=== PATIENT | female | born 1955 | race Caucasian/White ===

== ENCOUNTER 2020-10-25 14:49 | Outpatient (REF) | payer MEDICARE, MEDICAID, SELFPAY | END 2020-10-25 14:50 | disposition home or self-care (01) | LOC: HO.LAB 14:49 | PROVIDERS: Visit Provider Internal Medicine | DX: Z20.822 Contact with and (suspected) exposure to COVID-19 (principal) | CPT/HCPCS: C9803; U0003; U0005 ==

== ENCOUNTER 2021-06-20 14:09 | Outpatient (REF) | payer MEDICARE, MEDICAID, SELFPAY ==
--- NOTE | 2021-06-27 13:27 | MHC.AU.AEV ---
Adult Audiological Evaluation Date of Visit: 06/20/21 Patent Engineer Used: Monegasque- In Person Reason for Appointment: History of childhood-onset hearing loss. Patient arrives today to determine if there has been a change in hearing. Has hearing been tested previously?: Yes Previous Hearing Test Results: At this clinic on 08/10/2015- Severe to profound sensorineural hearing loss bilaterally (worse in the left ear) Ear History: Recent Ear Drainage: None Reported Recent Ear Pain: None Reported Family History of Hearing Loss?: Yes Medical History: Medical History: Asthma, Diabetes, Glaucoma, Hypertension, Familial Tremor, Unilateral Congenital Absence of Kidney Hearing Instrument History- Right Ear: Manager Food Safety: Phonak Model: Verena V50-UP Serial Number: [id number] Battery Size: 675 Dispensed By: [facility] Date of Fittin10/25/2015 Hearing Instrument History- Left Ear: Manager Food Safety: Phonak Model: Verena V50-UP Serial Number: [id number] Battery Size: 675 Dispensed By: [facility] Date of Fittin10/25/2015 Otoscopy: Right Ear: Unremarkable Left Ear: Unremarkable Tympanometry: Tympanometry performed due to: To assess integrity of the middle ear system Right Ear: Normal Middle Ear System (Type A) Left Ear: Normal Middle Ear System (Type A) Hearing Evaluation: Transducer(s) Used: Insert Earphones Method: Conventional Audiometry Stimuli Used: Pure Tones Right Ear: Description of Hearing: Moderately-severe to profound sensorineural hearing loss Left Ear: Description of Hearing: Severe to profound sensorineural hearing loss Speech Awareness Threshold (SAT): Right Ear: 65 dBHL Left Ear: 80 dBHL Word Discrimination: Right Ear: Could not test Left Ear: Could not test Comparison: Compared to the most recent evaluation: Hearing is stable. Recommendations: Audiological re-evaluation in one year. Hearing aid maintenance performed today. See Hearing Aid Follow-Up note for more information. Diagnosis: Primary Diagnosis: H90.3 Bilateral Sensorineural Hearing Loss Signature: Provider: Damon Coleman, [facility]
--- NOTE | 2021-06-27 13:28 | MHC.AU.HFU ---
Hearing Instrument Follow-Up- Binaural Date of Visit: 06/20/21 Reading Interventionist Used: Swedish- In Person Right Ear: Piano Case Maker: Phonak Model: Verena V50-UP Serial Number: [id number] Battery Size: 675 Dispensed By: [facility] Date of Fittin10/25/2015 Left Ear: Piano Case Maker: Phonak Model: Verena V50-UP Serial Number: [id number] Battery Size: 675 Dispensed By: [facility] Date of Fittin10/25/2015 Follow-Up Summary: Patient was seen for audiological re-evaluation (see separate report for details). Patient only brought the left hearing aid to today's appointment. She reports that she does wear the right hearing aid periodically. Maintenance performed on the left hearing aid. Microphones were completely clogged. Debris was cleaned from microphones. Mold was cleaned and retubed. Debris cleaned out of battery compartment. New hearing aid options were discussed. Patient selected a pair of Phonak Verena P70-UP in Beige. Impressions were taken bilaterally without incident and will be sent to [employer]. Recommendations: Recommendations: Patient will be contacted when materials have arrived. Diagnosis Code(s): Primary Diagnosis: H90.3 Bilateral Sensorineural Hearing Loss Signature: Provider: Damon Coleman, [facility]
--- NOTE | 2021-06-27 13:30 | MHC.AU.MED ---
Medical Clearance for Hearing Instrumentation Date: 06/27/21 Patient Name: Carola Green Date of : 1955 Referring Provider: Inna Whyte We have seen your patient on 06/20/21 and have determined that they are a candidate for amplification (See accompanying report). Specifically, they would benefit from: Hearing aid use in both ears There is a statute that addresses Medical Evaluation Requirements prior to fitting a patient with a hearing aid. According to [place] statute [facility] CMR:6.03(1), (a) General. Except as provided in 265 CMR 6.03(1)(b), a concrete vibrator operator shall not sell a hearing aid unless the prospective user has presented to the concrete vibrator operator a written statement signed by a licensed physician that states that the patient's hearing loss has been medically evaluated and the patient may be considered a candidate for a hearing aid. The medical evaluation must have taken place within the preceding six months. Please note: Due to the [place] Statute referenced above, we cannot accept a signature other than that of a licensed physician. YARD CONDUCTOR and PA signatures cannot be accepted. I am in agreement with the above recommendation. There is no medical contraindication for hearing instrumentation. Physician Signature Date Physician Name (Printed)
== END 2021-06-20 14:10 | disposition home or self-care (01) ==
LOC: HO.SH 14:09
PROVIDERS: Visit Provider Nurse Practitioner
DX: Z01.118 Encounter for examination of ears and hearing with other abnormal findings (principal); H90.3 Sensorineural hearing loss, bilateral
CPT/HCPCS: 92553; 92555; 92591; 92592; V5275

== ENCOUNTER 2021-07-25 14:10 | Outpatient (REF) | payer MEDICARE, MEDICAID, SELFPAY ==
--- NOTE | 2021-07-25 15:05 | MHC.AU.HFA ---
Hearing Instrument Fitting- Adult- Binaural Date of Visit: 07/25/21 Facility Service Associate Used: Daughter provided Argentine interpretation- waiver signed Hearing Instruments Dispensed: Right Ear: Underground Utility Locator: Phonak Model: Verena P70-UP Serial Number: [id number] Repair Warranty: 09/29/2024 Loss and Damage Warranty: 09/29/2024 Battery Size: 675 Color: Beige Type of Mold: Microsonic M2000 Shell Mold, Clear, No Vent Left Ear: Underground Utility Locator: Phonak Model: Verena B70-UP Serial Number: [id number] Repair Warranty: 09/29/2024 Loss and Damage Warranty: 09/29/2024 Battery Size: 675 Color: Beige Type of Mold: Microsonic M200 Shell Mold, Clear, No Vent Summary of Fitting: Feedback application developer manager run. Verifit performed and levels adjusted. It was noted that the new left mold was loose. The left hearing aid could not be adjusted high enough to reach targets because the gain was limited by the feedback measurements. Patient felt it sounded too soft. Swapped the new left mold out for the old left mold, and feedback measurements greatly improved. Patient felt the sound was much stronger. Right gain lowered 3 steps to help with balance of sound. Patient is pleased with the sound of the instruments. Volume control was activated so that each ear can be controlled independently since her hearing is asymmetrical. Hearing aid care and maintenance were discussed. A new impression was taken of the left ear and will be sent to [employer] for remake of the left mold. Recommendations: Patient will be contacted when the remade left mold has arrived. Diagnosis Code(s): Primary Diagnosis: H90.3 Bilateral Sensorineural Hearing Loss Signature: Provider: Damon Coleman, [facility]
== END 2021-07-25 14:11 | disposition home or self-care (01) ==
LOC: HO.HAP 14:10
PROVIDERS: Visit Provider Internal Medicine Geriatric Medicine
DX: Z46.1 Encounter for fitting and adjustment of hearing aid (principal); H90.3 Sensorineural hearing loss, bilateral
CPT/HCPCS: V5011; V5020; V5160; V5261; V5264; V5266

== ENCOUNTER 2021-08-27 14:35 | Outpatient (REF) | payer MEDICARE, MEDICAID, SELFPAY ==
--- NOTE | ~2021-08-27 | MM_ITS ---
EXAMINATION: MM SCREENING DIGITAL BREAST TOMOSYNTHESIS, BILATERAL CLINICAL INFORMATION: Screening. Asymptomatic. The lifetime risk of breast cancer based on the Tyrer-Cuzick Model is 3%. COMPARISON: Mammography: 12/05/2015, 02/11/2014 TECHNIQUE: Digital breast tomosynthesis is performed in both the craniocaudal and mediolateral oblique views along with computer-aided detection (CAD). Synthesized 2D images are generated from the tomosynthesis. FINDINGS: There are scattered areas of fibroglandular density (ACR BI-RADS breast composition Category b). There is no significant mass. No architectural abnormality. No abnormal calcifications. The axilla and skin contours are unremarkable. MM/MM tomosynthesis screening BI IMPRESSION: No mammographic evidence of malignancy. ASSESSMENT: BI-RADS 1: Negative RECOMMENDATION: Routine annual mammography screening. This patient's information was entered into a reminder system with a target due date for their next mammogram.
--- NOTE | ~2021-08-27 | XR_ITS ---
EXAMINATION: XR FOOT, LEFT CLINICAL INFORMATION: Medial plantar tenderness. COMPARISON: None TECHNIQUE: AP, lateral, and oblique views of the left foot. FINDINGS: Bony alignment and mineralization are normal. No fracture, dislocation or left ankle joint effusion is seen. Boehler's angle is normal. There are minimal posterior and plantar calcaneal spurs. There is a moderately large bunion seen of the left first metatarsal head. There is very mild osteoarthritic change of the first metatarsophalangeal joint. No soft tissue gas or foreign body is noted. XR/XR foot LT min 3V IMPRESSION: 1. No fracture, dislocation or left ankle joint effusion is seen. 2. There is moderately large bunion formation. 3. There is very mild osteoarthritic change of the left first metatarsophalangeal joint. 4. There are minimal left calcaneal spurs.
== END 2021-08-27 14:36 | disposition home or self-care (01) ==
LOC: HO.MAMMO 14:35
PROVIDERS: PCP Nurse Practitioner; Visit Provider Nurse Practitioner
DX: Z12.31 Encounter for screening mammogram for malignant neoplasm of breast (principal); M79.672 Pain in left foot
CPT/HCPCS: 73630; 77063; 77067

== ENCOUNTER 2022-07-23 15:36 | Outpatient (REF) | payer MEDICARE, MEDICAID, SELFPAY | END 2022-07-23 15:37 | disposition home or self-care (01) | LOC: HO.HAP 15:36 | PROVIDERS: Visit Provider Nurse Practitioner | DX: Z46.1 Encounter for fitting and adjustment of hearing aid (principal); H90.3 Sensorineural hearing loss, bilateral | CPT/HCPCS: V5266 ==

== ENCOUNTER 2023-03-04 12:46 | Outpatient (REF) | payer MEDICARE, MEDICAID, SELFPAY ==
--- NOTE | 2023-03-04 14:14 | MHC.AU.HA3 ---
Hearing Instrument Follow-Up- Binaural Date of Visit: 03/04/23 Right Ear: Make, Model, Color, Serial Number: Afia Albarado P70-UP SN: [id number] Color: Beige [employer] Repair Warranty: 09/29/2024 [employer] Loss and Damage Warranty: 09/29/2024 [facility] Service Plan: 07/25/2022 Battery Size: 675 Earmold/Dome/CShell/SlimTip:Microsonic M2000 Shell Mold, Clear, No Vent Dispensed By: [facility] Date of Fittin07/25/2021 Left Ear: Make, Model, Color, Serial Number: Afia Albarado P70-UP SN: [id number] Color: Biege [employer] Repair Warranty: 09/29/2024 [employer] Loss and Damage Warranty: 09/29/2024 [facility] Service Plan: 07/25/2022 Battery Size: 675 Earmold/Dome/CShell/SlimTip: Microsonic M200 Shell Mold, Clear, No Vent Dispensed By: [facility] Date of Fittin07/25/2021 Follow-Up Summary: Carola's left tone hook fell off the hearing aid and would not screw back on. Tubing discolored and hardened and microphones blocked with debris. Cleaned hearing aid and ear mold. Brushed and vacuumed microphones. Replaced tone hook and tubing. Also fit remade left hearing aid from 2021 that was never fit due to several no show appointments. Reran feedback analyzer with significant improvement in feedback curve. However, Carola then thought it was too loud. Decreased to 80% gain level per Carola for comfort. She also reportedly lost her right hearing aid and ear mold. Faxed signed L&D form to [email or web address]. Called [employer] - ordered a new right ear mold using the impression on file. Recommendations: Patient will be contacted when materials have arrived. Diagnosis Code(s): Primary Diagnosis: H90.3 Bilateral Sensorineural Hearing Loss Signature: Provider: Michael Vieyra, [facility]
== END 2023-03-04 12:47 | disposition home or self-care (01) ==
LOC: HO.HAP 12:46
PROVIDERS: Visit Provider Nurse Practitioner
DX: Z46.1 Encounter for fitting and adjustment of hearing aid (principal); H90.3 Sensorineural hearing loss, bilateral
CPT/HCPCS: 92592; 99499; V5266

== ENCOUNTER 2023-04-02 13:58 | Outpatient (REF) | payer MEDICARE, MEDICAID, SELFPAY ==
--- NOTE | 2023-04-02 14:34 | MHC.AU.HA3 ---
Hearing Instrument Follow-Up- Binaural Date of Visit: 04/02/23 Right Ear: Make, Model, Color, Serial Number: Afia Albarado P70-UP SN: [id number] Color: Beige Operating Room Aide Repair Warranty: 09/29/2024 Operating Room Aide Loss and Damage Warranty: USED [facility] Service Plan: 07/25/2022 Battery Size: 675 Earmold/Dome/CShell/SlimTip:Microsonic M35 full shell Dispensed By: [facility] Date of Fittin07/25/2021 Left Ear: Make, Model, Color, Serial Number: Afia Albarado P70-UP SN: [id number] Color: Biege Operating Room Aide Repair Warranty: 09/29/2024 Operating Room Aide Loss and Damage Warranty: 09/29/2024 [facility] Service Plan: 07/25/2022 Battery Size: 675 Earmold/Dome/CShell/SlimTip: Microsonic M35 full shell Dispensed By: [facility] Date of Fittin07/25/2021 Follow-Up Summary: Fit right L&D replacement and new right ear mold. Re-paired to left hearing aid via [employer] software and programmed to previous settings. Carola reported comfortable ear mold fit and good overall sound quality. No feedback noted in office. Discussed the need for periodic tubing changes. Recommendations: Hearing instrument maintenance in 6 months, or sooner if needed. Please contact our clinic with any questions or concerns. Diagnosis Code(s): Primary Diagnosis: H90.3 Bilateral Sensorineural Hearing Loss Signature: Provider: Michael Vieyra, [facility]
== END 2023-04-02 13:59 | disposition home or self-care (01) ==
LOC: HO.HAP 13:58
PROVIDERS: Visit Provider Nurse Practitioner
DX: Z46.1 Encounter for fitting and adjustment of hearing aid (principal); H90.3 Sensorineural hearing loss, bilateral
CPT/HCPCS: 92593; 99499; V5264

== ENCOUNTER 2023-04-07 15:39 | Outpatient (REF) | payer MEDICARE, MEDICAID, SELFPAY ==
[2023-04-07 17:26] LABS: MANUAL DIFF FLAG NO
[2023-04-07 17:49] LABS: Anion Gap 10 (12-20); Basophils Percent Auto 0.5 % (0-2); Blood Urea Nitrogen 11 mg/dL (9-16); Calcium 9.1 mg/dL (8.4-10.2); Carbon Dioxide 28 mmol/L (22-29); Chloride 106 mmol/L (96-108); Eosinophils Absolute Auto 0.1 X10*3/uL (0.0-0.4); Eosinophils Percent Auto 0.7 % (0-4); Estimated Glomerular Filt Rate > 60; Glucose Random 243 mg/dL (60-115); Hematocrit 42.6 % (37.0-47.0); Imm Gran Abs Auto 0.04 X10*3/uL (0.00-0.03); Imm Gran Pct Auto 0.5 % (0.0-0.4); Lymphocytes Percent Auto 26.5 % (20-40); Mean Corpuscular HGB Conc 32.9 g/dl (31.0-35.0); Mean Corpuscular Hemoglobin 29.5 pg (27.0-33.0); Mean Corpuscular Volume 89.7 fL (80.0-98.0); Mean Platelet Volume 10.2 fL (9.4-12.3); Monocytes Absolute Auto 0.6 X10*3/uL (0.1-1.2); Monocytes Percent Auto 8.3 % (2-11); Neutrophils Absolute Auto 4.8 x10*3/uL (2.0-8.3); Neutrophils Percent Auto 63.5 % (45-73); Platelet Count 331 X10*3/uL (160-400); Potassium 4.2 mmol/L (3.3-5.1); Red Blood Count 4.75 X10*6/uL (4.20-5.50); Red Cell Distribution Width 12.7 % (11.0-16.0); Sodium 140 mmol/L (135-145); White Blood Count 7.6 X10*3/uL (4.8-10.8)
[2023-04-07 18:06] LABS: Creatinine Urine 138.07 mg/dL; Microalbum/Creatinine Ratio Ur 69.5 ug/mg cr (<30)
== END 2023-04-07 15:40 | disposition home or self-care (01) ==
LOC: HO.HHCL 15:39
PROVIDERS: Visit Provider Internal Medicine
DX: E11.65 Type 2 diabetes mellitus with hyperglycemia (principal); I10 Essential (primary) hypertension
CPT/HCPCS: 36415; 80048; 82043; 82570; 85025

== ENCOUNTER 2024-07-23 11:22 | Outpatient (REF) | payer MEDICARE, MEDICAID, SELFPAY ==
--- OUTSIDE RECORDS SUMMARY | 2024-07-23 11:44 | XMS_ITS | Encounter Summary ---
Author Organization [employer] Address [address] [place] [address] Care Team Providers Care Reverberatory Skimmer Name Role Phone Calista Hooper MD Primary Care Provide r Reason for Visit * Reason Comments Dental Exam Encounter Details Date Type Department Care Team ([facility] Contact Info) Description 07/23/2024 10:00 AM EDT Office Visit [facility] [address] [place] [address] Kyle Henry DDS [address] [place] [address] Social History Tobacco Use Types Packs/Day Years Used Date Smoking Tobacco: Never Smokeless Tobacco: Former Housing Stability Answer Date Recorded What is your housing situation today? I have jim hagan 02/07/[address] you li ve. Do you have problems with any of the following? None of the above 02/07/2023 Food Insecurity Answer Date Recorded Within the past 12 months, y ou worried that your food would run out before you got money to buy more: Never True 02/07/2023 Within the past 12 months,th e food you bought just didn't last and you didn't have enough money to get more: Never True 03/2022 Transportation Answer Date Recorded In the past 12 months, has l ack of transportation kept you from medical appts, meetings, work or from getting things needed for daily living? No 02/07/2023 Utilities Answer Date Recorded In the past 12 months, has t he electric, gas, oil or water company threatened to shut off services in your home? No 02/07/2023 Comments Unknown Sex and Gender Information Value Date Recorded Sex Assigned at Female 2022 10:14 AM EDT Legal Sex Female 10:14 AM EDT Gender Identity Female 2022 10:14 AM EDT Sexual Orientation Straight 2022 10 :14 AM EDT documented as of this encounter Plan of Treatment Upcoming Encounters Date Type Department Care Team (Late st Contact Info) Description 08/12/2024 1:45 PM EDT Office Visit [facility] [address] [place] [address] Calista Hooper MD [address] [place] [address] Scheduled Orders Name Type Priority Associated Diagnoses Orde r Schedule 18,19,30,31 18,19,30,31 MANDIBULAR PARTIAL DENTURE - RESIN BASE (INCLUDING, RETENTIVE/CLASPING MATERIALS, RESTS, AND TEETH) Dental Routine [address] arting 07/23/2024 PERIODIC ORAL EVALUATION - ESTABLISHED PATIENT Dental Routine 1 Occurren lilia starting 07/23/2024 INTRAORAL - PERIAPICAL FIRST RADIOGRAPHIC IMAGE Dental Routine 1 Occur rences starting 07/23/2024 INTRAORAL - PERIAPICAL EACH ADDITIONAL RADIOGRAPHIC IMAGE Dental Routine 1 Occurrences starting 07/23/2024 INTRAORAL - PERIAPICAL EACH ADDITIONAL RADIOGRAPHIC IMAGE Dental Routine 1 Occurrences starting 07/23/2024 INTRAORAL - PERIAPICAL EACH ADDITIONAL RADIOGRAPHIC IMAGE Dental Routine 1 Occurrences starting 07/23/2024 INTRAORAL - PERIAPICAL EACH ADDITIONAL RADIOGRAPHIC IMAGE Dental Routine 1 Occurrences starting 07/23/2024 INTRAORAL - PERIAPICAL EACH ADDITIONAL RADIOGRAPHIC IMAGE Dental Routine 1 Occurrences starting 07/23/2024 DENTURE IMPRESSION Dental Routine 1 Occu rrences starting 07/23/2024 BITE REGISTRATION Dental Routine 1 Occur rences starting 07/23/2024 WAX TRY IN Dental Routine 1 Occurrences starting 07/23/2024 Max Max COMPLETE DENTURE - MAXILLARY Dental Routine [address] arting 07/23/2024 documented as of this encounter Visit Diagnoses Not on filedocumented in this encounter Care Teams Reverberatory Skimmer Relationship Specialty Start Date End Date Calista Hooper MD [address] [place] [id number] PCP - General Internal Medicine 02/11/23 documented as of this encounter
--- OUTSIDE RECORDS SUMMARY | 2024-07-23 11:44 | XMS_ITS | Clinical Summary ---
Author Organization [employer] Address [address] [facility] [address] [place] [address] Care Team Providers Care Solution Engineer Name Role Phone Calista Hooper MD Primary Care Provide r Allergies Active Allergy Reactions Criticality Noted Date Comments Ibuprofen 01/01/2013 Other reaction(s): Stomach Pain Pravastatin 07/06/2010 Other reaction(s): cannot swallow large tablet Medications aluminum-magnesi um hydroxide-simeth icone (Maalox Max) 400-400-40 MG/5ML suspension take 10 milliliter by oral route between meals and at bedtime as needed up to 3 times daily 2 Active ammonium lactate (Lac-Hydrin) 12 % lotion apply to bilateral feet twice daily as needed 2 Active cetirizine (ZyrTEC) 10 MG tablet Take 1 tablet by mouth in the morning. 2 Active Diclofenac Sodium (Voltaren) 1 % gel Apply 2 g topically every 6 (six) hours. 2 Active cyanocobalamin (Vitamin B-12) 1000 MCG tablet Take 1 tablet by mouth in the morning. 2 Active docusate sodium (Colace) 100 MG capsule take 1 Capsule by oral route 2 times every day as needed for constipation 2 Active fluticasone (Flonase) 50 MCG/ACT nasal spray Administer 1 spray into affected nostril(s) every 12 (twelve) hours. 2 Active lidocaine (Lidoderm) 5 % patch Place 1 patch on the skin at bed time. 2 Active zoster vaccine-recombin ant adjuvanted (Shingrix) 50 MCG/0.5ML vaccine Inject 0.5 mL into the shoulder, thigh, or buttocks. 2 Active Blood Pressure kit Active Spacer/Aero-Hold ing Chambers device Active dorzolamide-dillon lol (Cosopt) 22.3-6.8 MG/ML ophthalmic solutionIndicati ons:Glaucoma, unspecified glaucoma type, unspecified laterality Administer 1 drop into affected eye(s) every 12 (twelve) hours. 10 mL 2 Active latanoprost (Xalatan) 0.005 % ophthalmic solutionIndicati ons:Glaucoma, unspecified glaucoma type, unspecified laterality instill 1 drop by ophthalmic route every evening into both eyes 10 mL 2 Active acetaminophen (Tylenol) 500 MG tabletIndication s:Polyarthralgia take 1 Tablet by oral route every 8 hours as needed for pain 30 tablet 2 4 Active albuterol (2.5 MG/3ML) 0.083% nebulizer solutionIndicati ons:Asthma, unspecified asthma severity, unspecified whether complicated, unspecified whether persistent Take 3 mL by nebulization every 6 (six) hours. 75 mL 1 4 Active albuterol (Ventolin HFA) 108 (90 Base) MCG/ACT inhalerIndicatio ns:Asthma, unspecified asthma severity, unspecified whether complicated, unspecified whether persistent Inhale 2 puffs every 4 (four) hours if needed for wheezing or shortness of breath. 18 g 2 4 Active atorvastatin (Lipitor) 40 MG tabletIndication s:Essential hypertension Take 1 tablet (40 mg) by mouth in the morning. 30 tablet 1 4 Active buPROPion SR (Wellbutrin SR) 150 MG 12 hr tabletIndication s:Depressive disorder Take 1 tablet (150 mg) by mouth in the morning. 30 tablet 2 4 Active cholecalciferol (Vitamin D-3) 50 MCG (1999 UT) tabletIndication s:Type 2 diabetes mellitus with hyperglycemia, without long-term current use of insulin ([facility]) Take 2,000 Units by mouth in the morning. 30 tablet 2 4 Active Fluticasone-Salm eterol (Advair Diskus) 500-50 MCG/ACT aerosol powderIndication s:Asthma, unspecified asthma severity, unspecified whether complicated, unspecified whether persistent Inhale 1 puff every 12 (twelve) hours. 1 each 2 4 Active glipiZIDE (Glucotrol) 5 MG tabletIndication s:Type 2 diabetes mellitus with hyperglycemia, without long-term current use of insulin (CMS/HCC) take 1 tablet (5MG) by oral route every day with breakfast 30 tablet 2 4 Active glucose blood (FREESTYLE LITE) test stripIndications :Type 2 diabetes mellitus with hyperglycemia, without long-term current use of insulin (CMS/HCC) Use 1 strip twice a day 100 each 2 4 Active losartan (Cozaar) 100 MG tabletIndication s:Essential hypertension Take 1 tablet (100 mg) by mouth in the morning. 30 tablet 2 4 Active metFORMIN (Glucophage) 500 MG tabletIndication s:Type 2 diabetes mellitus with hyperglycemia, without long-term current use of insulin (CMS/HCC) 2 tablet by mouth twice daily with meals 180 tablet 2 4 Active montelukast (Singulair) 10 MG tabletIndication s:Asthma, unspecified asthma severity, unspecified whether complicated, unspecified whether persistent Take 1 tablet (10 mg) by mouth in the morning. 30 tablet 2 4 Active omega-3 1000 MG capsule capsuleIndicatio ns:Essential hypertension take one capsule 2 times a day 60 capsule 2 4 Active primidone (Mysoline) 50 MG tabletIndication s:Tremor Take 1 tablet (50 mg) by mouth every 12 (twelve) hours. 30 tablet 2 4 Active sertraline (Zoloft) 50 MG tabletIndication s:Depressive disorder Take 1 tablet (50 mg) by mouth in the morning. 30 tablet 2 4 Active traZODone (Desyrel) 50 MG tabletIndication s:Depressive disorder Take 1 tablet (50 mg) by mouth at bedtime. 30 tablet 2 4 Active Blood Pressure Monitor kitIndications:E ssential hypertension Use as directed 3x/week 1 kit 4 Active Alcohol Swabs (Alcohol Prep) padsIndications: Type 2 diabetes mellitus with hyperglycemia, without long-term current use of insulin ([facility]) 1 each 2 times daily. 100 each 2 4 Active Blood Glucose Monitoring Suppl (Blood Glucose Monitor System) w/Device kitIndications:T ype 2 diabetes mellitus with hyperglycemia, without long-term current use of insulin (CMS/[facility]) 1 each 2 times daily. 1 kit 4 Active Lancets miscIndications: Type 2 diabetes mellitus with hyperglycemia, without long-term current use of insulin (CMS/[facility]) 1 each 2 times daily. 100 each 2 4 Active lidocaine (Lidoderm) 5 % patchIndications :Polyarthralgia Apply 1 patch topically in the morning. Remove & discard patch within 12 hours or as directed by MD. 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 13 Joint pain 01/21/2012 Depressive disorder 11/18/2011 Glaucoma 11/18/2011 Diabetes mellitus 09/05/2011 Assessment & Plan (04/07/2023 4:47 PM EST): - Lab Results Component Value Date HGBA1C 8.5 (A) 04/07/2023 HGBA1C 7.2 (H) 06/07/2021 - Lab Results Component Value Date MICROALBUR 8.1 06/07/2021 - Diabetic eye exam:referral today - Diabetic foot exam:pending - Continue lifestyle modifications - Continue current medications Essential hypertension 09/05/2011 Assessment & Plan (04/07/2023 4:47 PM EST): Maintenance: BMP: ordered Lipid Panel: ordered ASCVD Risk: Calculate pending updated labs -I send her medications to the pharmacy and advise to star taking them as soon as possible - Aerobic exercise to reduce BP. Initial goal of 30 min walk 3-5x/week. Increase as tolerated. - low-sodium diet (goal: <2g/day) and heart healthy diet such as DASH to reduce BP and prevent ASCVD. - Home BP monitoring 1-2 x day with goal of <140/90. - Seek immediate medical attention for chest pain, palpitations, SOB, syncope, or sudden changes in mental status. - Do not change or discontinue current prescriptions without first consulting health care provider Hearing loss 09/05/2011 Encounters Date Type Department Care Team Description 07/23/2024 10:00 AM EDT Office Visit [facility] [address] [place] [address] Kyle Henry DDS 07/15/2024 Telephone [facility] [address] [place] [address] Calista Hooper MD Durable Medical Equipment 07/05/2024 Telephone [facility] [address], [place] [phone] Calista Hooper MD Referral 06/10/2024 1:00 PM EDT Office Visit [facility] [address] [place] [address] Austin August DMD 05/21/2024 Population Health Risk Score [facility] () Department [address] [phone] Provider, Population Health Generic 05/13/2024 Telephone [facility] [address], [place] [phone] Calista Hooper MD 05/12/2024 Telephone [facility] [address] [place] [address] [phone] Randi Moreira, FALGUNI from Last 3 Months Immunizations Immunization Administration Dates Next Due Influenza injectable quadriv alent IIV4 with preservative 12/05/2015,02/27/2015 Influenza injectable quadrivalent preservative f ree 04/07/2023,03/04/2019 Influenza, IIV3, injectable 01/11/2014, 0 Influenza, Split (incl. purified surface antigen ) 01/01/2013,11/18/2011 Pfizer Covid-19 Vaccine 12+ 07/06/2020, Pneumococcal Polysaccharide PPSV23 11/18/2011 TD (adult), 2 Lf tetanus tox oid, preservative free, adsorbed 10/10/1998 Tdap 11/18/2011 Zoster, live 12/05/2015 Social History Tobacco Use Types Packs/Day Years Used Date Smoking Tobacco: Never Smokeless Tobacco: Former Tobacco Cessation:Counseling Given: Not Answered Housing Stability Answer Date Recorded What is [...] Orientation Straight 2022 10 :14 AM EDT Last Filed Vital Signs Vital Sign Reading Time Taken Comments Blood Pressure 140/80 06/10/2024 1:05 PM EDT Pulse 74 06/10/2024 1:05 PM EDT Temperature 36.3 ??C (97.3 ??F) 04/07/2023 2:11 PM ES T Respiratory Rate 14 04/07/2023 2:11 PM EST Oxygen Saturation - - Inhaled Oxygen Concentration - - Weight 67.6 kg (149 lb) 04/07/2023 2:11 PM EST Height 152.4 cm (5') 04/07/2023 2:11 PM EST Body Mass Index 29.1 04/07/2023 2:11 PM EST Plan of Treatment Upcoming Encounters Date Type Department Care Team (Late st Contact Info) Description 08/12/2024 1:45 PM EDT Office Visit [facility] [address] [place] [address] Calista Hooper MD [address] [place] [address] Health Maintenance Due Date Last Done Comments CT Colonography 1955 Colonoscopy 1955 Colorectal Cancer Screening 1955 Depression Screening 1955 FIT DNA/Cologuard 1955 FIT 1955 FOBT 1955 Sigmoidoscopy 1955 Diabetes: Foot Exam 1965 Eye Exam 1965 Alcohol/Substance Use Screening 1967 Dental Prophylaxis 04/09/2009 10/06/2008 Pneumococcal Vaccine: 50+ Years (2 of 2 - PCV) 11/17/2012 11/18/2011 RSV Patients and Patients Aged 60 years or older (1 - Risk 60-74 years 1-dose series) 2015 Zoster Vaccines (2 of 3) 01/30/2016 12/05/2015 Dental X-Ray: Full Mouth 04/06/2018 04/05/2015 Dental Oral Exam 07/17/2019 01/15/2019, , 04/05/2015 DTaP/Tdap/Td Vaccines (2 - Td or Tdap) 11/17/2021 11/18/2011, 10/10/1998 Lipid Panel 06/07/2022 06/07/2021 Diabetes: Hemoglobin A1C 07/07/2023 04/07/2023, 03/3 03/2021 Mammogram 08/28/2023 08/27/2021, 08/27/2021 COVID-19 Vaccine ( - season) 2023 07/06/2020, 06/15/2020 Influenza Vaccine (#1) 2023 , 03/04/2019, 12/05/2015, Additional history exists SDOH Screening 03/27/2024 03/27/2023 Diabetes: Urine Protein Screening 04/07/2024 04/07/2023, 06/07/2021 Dental X-Ray: Bitewings 06/11/2025 06/11/19, 04/04/2017, 04/05/2015, Additional history exists Tobacco Screening 07/23/2025 07/23/2024 Hepatitis C Screening Completed 06/07/2021 HIB Vaccines Aged Out No longer eligi ble based on patient's age to complete this topic HPV Vaccines Aged Out No longer eligi ble based on patient's age to complete this topic Hepatitis A Vaccines Aged Out No long er eligible based on patient's age to complete this topic Hepatitis B Vaccines Aged Out No long er eligible based on patient's age to complete this topic IPV Vaccines Aged Out No longer eligi ble based on patient's age to complete this topic Meningococcal B Vaccine Aged Out No l onger eligible based on patient's age to complete this topic Meningococcal Vaccine Aged Out No georgette uriel eligible based on patient's age to complete this topic RSV under 20 months Aged Out No longe r eligible based on patient's age to complete this topic Rotavirus Vaccines Aged Out No longer eligible based on patient's age to complete this topic Procedures Procedure Name Priority Date/Time Associated Diagnosis Comments CASE PRESENTATION, DETAILED AND EXTENSIVE TREATMENT PLANNING Routine 06/10/2024 1:00 PM EDT BITEWING - SINGLE RADIOGRAPHIC IMAGE Routine 06/10/2024 1:00 PM EDT INTRAORAL - PERIAPICAL EACH ADDITIONAL RADIOGRAPHIC IMAGE Routine 06/10/2024 1:00 PM EDT INTRAORAL - PERIAPICAL FIRST RADIOGRAPHIC IMAGE Routine 06/10/2024 1:00 PM EDT PALLIATIVE (EMERGENCY) TREATMENT OF DENTAL PAIN - MINOR PROCEDURE Routine 06/10/2024 1:00 PM EDT ALBUMIN, RANDOM URINE W/CREATININE Routine 04/07/2023 3:43 PM EST POCT GLYCATED HEMOGLOBIN, TOTAL Routine 04/07/2023 2:26 PM EST Type 2 diabetes mellitus with hyperglycemia, without long-term current use of insulin (CMS/HCC) HM MAMMOGRAPHY Routine 08/27/2021 ZZZ HISTORICAL HEPATITIS C AB W/REFL TO HCV RNA, QN, PCR Routine 06/07/2021 2:30 PM EDT LIPID PANEL, STANDARD Routine 06/07/2021 2:30 PM EDT PERIODIC ORAL EVALUATION - ESTABLISHED PATIENT Routine 01/15/2019 12:00 AM EST INTRAORAL - COMPLETE SERIES OF RADIOGRAPHIC IMAGES Routine 04/05/2015 12:00 AM EST PROPHYLAXIS - ADULT Routine 10/06/2008 1 2:00 AM EDT from Last 3 Months or Most Recently Relevant to Health Maintenance Results * (ABNORMAL) Albumin, Random Urine W/Creatinine (04/07/2023 3:43 PM EST) Creatinine, Urine 138.07 mg/dL [facility] Microalbumin Urine 96.0 mg/L [facility] Microalbum Creatinine Ratio Ur 69.5(H) <30 ug/mg cr [facility] Comment:Albumin/Creatinine R atio Reference Ranges: Normal: < 30 ug/mg creatinine Microalbuminuria: 30 - 300 ug/mg creatinineClinical Albuminuria: > 300 ug/mg creatinine 04/07/2023 3:43 PM EST 04/07/2023 5:26 PM EST us Calista Nuñez MD LAB URINE ORDERABLES Final Result [facility] [address] [place] [address] [phone] * (ABNORMAL) POCT HGB A1C (04/07/2023 2:26 PM EST) Hemoglobin A1C 8.5(A) 4.0 - 6.0 % QC Media Lot # [id number] Lot# Expiration Date Blood 04/07/2023 2:26 PM EST us Calista Nuñez MD POINT OF CARE TEST EN TER/EDIT ORDERABLES Final Result * Mammography (08/27/2021) HM Mammogram BIRADS 1 Anatomical Region Laterality Modality Other Historical Provider HEALTH MAINTENANCE Final Result * HEPATITIS C AB W/REFL TO HCV RNA, QN, PCR (06/07/2021 2:30 PM EDT) Pathologist [facility] HEPATITIS C ANTIBODY NON-REACT MARCIE NON-REACT MARCIE [facility] INDEX 0.01 <1.00 [facility] Comment: ?? HCV antibody was non-reactive. There is no laboratory ?? evidence of HCV infection. ?? In most cases, no further action is required. However, if recent HCV exposure is suspected, a test for HCV RNA (test code 73815) is suggested. ?? For additional information please refer to http://Reply.io.[facility]/faq/ZZX74t6 (This link is being provided for informational/ educational purposes only.) ?? 06/07/2021 2:30 PM EDT Inna Whyte NP HISTORICAL/NON ORDERABLE LABS F inal Result [facility] [address] * (ABNORMAL) LIPID PANEL, STANDARD (06/07/2021 2:30 PM EDT) Pathologist [facility] Chol/HDLC Ratio 5.2(H) <5.0 (calc) [facility] Cholesterol, Total 218(H) <200 mg/dL [facility] HDL Cholesterol 42(L) > OR = 50 mg/dL [facility] LDL Cholesterol 139(H) mg/dL (calc) [facility] Comment: Reference range: <100 ?? Desirable range <100 mg/dL for primary prevention; ?? <70 mg/dL for patients with CHD or diabetic patients ?? with > or = 2 CHD risk factors. ?? LDL-C is now calculated using the Ramo ?? calculation, which is a validated novel method providing ?? better accuracy than the Friedewald equation in the ?? estimation of LDL-C. ?? Rio CORTEZ et al. KATELYNN. 2013;310(19): 6814-8041 ?? (http://education.HyprKey/faq/CHN385) Non-HDL Cholesterol 176(H) <130 mg/dL (calc) [facility] Comment: For patients with diabetes plus 1 major ASCVD risk ?? factor, treating to a non-HDL-C goal of <100 mg/dL ?? (LDL-C of <70 mg/dL) is considered a therapeutic ?? option. Triglycerides 229(H) <150 mg/dL [facility] Comment: ?? If a non-fasting specimen was collected, consider repeat triglyceride testing on a fasting specimen if clinically indicated. ?? Sarwat et al. J. of Clin. Lipidol. 2015;9:129-169. ?? 06/07/2021 2:30 PM EDT us Inna Whyte DIGITAL CONTENT PRODUCER LAB BLOOD ORDERABLES Final Resu lt [facility] [address] from Last 3 Months or Most Recently Relevant to Health Maintenance [place] [address] [place] [address] STANDARD MEDICARE DENTAL[facility] STAND ADULT Care Teams Solution Engineer Relationship Specialty Start Date End Date Calista Hooper MD [address] [place] [phone] PCP - General Internal Medicine 02/11/23
--- OUTSIDE RECORDS SUMMARY | 2024-07-23 11:44 | XMS_ITS | Clinical Summary ---
Author Organization [facility] Address [address] [place] [address] Care Team Providers Care Country Singer Name Role Phone Unavailable Primary Care Provider Unavailabl e Social History Tobacco Use Types Packs/Day Years Used Date Smoking Tobacco: Never Assessed Comments Unknown Sex and Gender Information Value Date Recorded Sex Assigned at Not on file Legal Sex Female 4:29 AM EST Gender Identity Not on file Sexual Orientation Not on file Plan of Treatment Health Maintenance Due Date Last Done Comments Breast Cancer Screening 1955 DTaP,Tdap,and Td Vaccines (1 - Tdap) 1974 Pneumococcal Vaccine: 50+ Ye ars (1 of 1 - PCV) 2005 Zoster Vaccines (1 of 2) 2005 COVID-19 Vaccine ( - 2023-2 5 season) 2023 Influenza Vaccine (Season Ended) 2024 RSV Immunization Adult Patie nts (1 - 1-dose 75+ series) 2030 HIB Vaccines Aged Out No longer eligi [...] on patient's age to complete this topic MMR Vaccines Aged Out No longer eligi ble based on patient's age to complete this topic Meningococcal ACWY Vaccine Aged Out N o longer eligible based on patient's age to complete this topic Meningococcal B Vaccine Aged Out No l onger eligible based on patient's age to complete this topic RSV Immunization Patients Un thierry 20 months Aged Out No longer eligible b ased on patient's age to complete this topic Varicella Vaccines Aged Out No longer eligible based on patient's age to complete this topic
== END 2024-07-23 11:23 | disposition home or self-care (01) ==
LOC: HO.HAP 11:22
PROVIDERS: PCP Dentist General Practice; Visit Provider Dentist General Practice
DX: Z46.1 Encounter for fitting and adjustment of hearing aid (principal); H90.3 Sensorineural hearing loss, bilateral
CPT/HCPCS: V5266

== ENCOUNTER 2024-08-12 15:09 | Outpatient (REF) | payer MEDICARE, MEDICAID, SELFPAY ==
[2024-08-12 17:01] LABS: Creatinine Urine 123.15 mg/dL; Microalbum/Creatinine Ratio Ur 111.2 ug/mg cr (<30)
--- OUTSIDE RECORDS SUMMARY | 2024-08-12 17:47 | XMS_ITS | Clinical Summary ---
Author Organization [employer] Address [address] [facility] [address] [place] [address] Care Team Providers Care C4 Planner Name Role Phone Calista Hooper MD Primary Care Provide r Allergies Active Allergy Reactions Criticality Noted Date Comments Ibuprofen 01/01/2013 Other reaction(s): Stomach Pain Pravastatin 07/06/2010 Other reaction(s): cannot swallow large tablet Medications aluminum-magnes ium hydroxide-simet hicone (Maalox Max) 400-400-40 MG/5ML suspension take 10 milliliter by oral route between meals and at bedtime as needed up to 3 times daily Active ammonium lactate (Lac-Hydrin) 12 % lotion apply to bilateral feet twice daily as needed Active cetirizine (ZyrTEC) 10 MG tablet Take 1 tablet by mouth in the morning. Active Diclofenac Sodium (Voltaren) 1 % gel Apply 2 g topically every 6 (six) hours. Active cyanocobalamin (Vitamin B-12) 1000 MCG tablet Take 1 tablet by mouth in the morning. Active docusate sodium (Colace) 100 MG capsule take 1 Capsule by oral route 2 times every day as needed for constipation Active fluticasone (Flonase) 50 MCG/ACT nasal spray Administer 1 spray into affected nostril(s) every 12 (twelve) hours. Active lidocaine (Lidoderm) 5 % patch Place 1 patch on the skin at bed time. Active zoster vaccine-recombi nant adjuvanted (Shingrix) 50 MCG/0.5ML vaccine Inject 0.5 mL into the shoulder, thigh, or buttocks. Active Blood Pressure kit Active Spacer/Aero-Hol ding Chambers device Active dorzolamide-beka olol (Cosopt) 22.3-6.8 MG/ML ophthalmic solutionIndicat ions:Glaucoma, unspecified glaucoma type, unspecified laterality Administer 1 drop into affected eye(s) every 12 (twelve) hours. 10 mL Active latanoprost (Xalatan) 0.005 % ophthalmic solutionIndicat ions:Glaucoma, unspecified glaucoma type, unspecified laterality instill 1 drop by ophthalmic route every evening into both eyes 10 mL Active acetaminophen (Tylenol) 500 MG tabletIndicatio ns:Polyarthralg ia take 1 Tablet by oral route every 8 hours as needed for pain 30 tablet 2 Active albuterol (2.5 MG/3ML) 0.083% nebulizer solutionIndicat ions:Asthma, unspecified asthma severity, unspecified whether complicated, unspecified whether persistent Take 3 mL by nebulization every 6 (six) hours. 75 mL 1 Active albuterol (Ventolin HFA) 108 (90 Base) MCG/ACT inhalerIndicati ons:Asthma, unspecified asthma severity, unspecified whether complicated, unspecified whether persistent Inhale 2 puffs every 4 (four) hours if needed for wheezing or shortness of breath. 18 g 2 Active buPROPion SR (Wellbutrin SR) 150 MG 12 hr tabletIndicatio ns:Depressive disorder Take 1 tablet (150 mg) by mouth in the morning. 30 tablet 2 Active cholecalciferol (Vitamin D-3) 50 MCG (2000 UT) tabletIndicatio ns:Type 2 diabetes mellitus with hyperglycemia, without long-term current use of insulin ([facility]) Take 2,000 Units by mouth in the morning. 30 tablet 2 Active Fluticasone-Layo meterol (Advair Diskus) 500-50 MCG/ACT aerosol powderIndicatio ns:Asthma, unspecified asthma severity, unspecified whether complicated, unspecified whether persistent Inhale 1 puff every 12 (twelve) hours. 1 each Active glucose blood (FREESTYLE LITE) test stripIndication s:Type 2 diabetes mellitus with hyperglycemia, without long-term current use of insulin ([facility]) Use 1 strip twice a day 100 each Active montelukast (Singulair) 10 MG tabletIndicatio ns:Asthma, unspecified asthma severity, unspecified whether complicated, unspecified whether persistent Take 1 tablet (10 mg) by mouth in the morning. 30 tablet Active omega-3 1000 MG capsule capsuleIndicati ons:Essential hypertension take one capsule 2 times a day 60 capsule Active primidone (Mysoline) 50 MG tabletIndicatio ns:Tremor Take 1 tablet (50 mg) by mouth every 12 (twelve) hours. 30 tablet 2 Active sertraline (Zoloft) 50 MG tabletIndicatio ns:Depressive disorder Take 1 tablet (50 mg) by mouth in the morning. 30 tablet Active traZODone (Desyrel) 50 MG tabletIndicatio ns:Depressive disorder Take 1 tablet (50 mg) by mouth at bedtime. 30 tablet Active Blood Pressure Monitor kitIndications: Essential hypertension Use as directed 3x/week 1 kit Active Alcohol Swabs (Alcohol Prep) padsIndications :Type 2 diabetes mellitus with hyperglycemia, without long-term current use of insulin ([facility]) 1 each 2 times daily. 100 each Active Blood Glucose Monitoring Suppl (Blood Glucose Monitor System) w/Device kitIndications: Type 2 diabetes mellitus with hyperglycemia, without long-term current use of insulin ([facility]) 1 each 2 times daily. 1 kit 024 Active Lancets miscIndications :Type 2 diabetes mellitus with hyperglycemia, without long-term current use of insulin ([facility]) 1 each 2 times daily. 100 each 024 Active lidocaine (Lidoderm) 5 % patchIndication s:Polyarthralgi a Apply 1 patch topically in the morning. Remove & discard patch within 12 hours or as directed by MD. 30 patch 2 Active Blood Pressure Monitoring (Blood Pressure Cuff) miscIndications :Essential hypertension 1 each in the morning. 1 each Active atorvastatin (Lipitor) 40 MG tabletIndicatio ns:Essential hypertension Take 1 tablet (40 mg) by mouth Once per day. 90 tablet 2 025 Active glipiZIDE (Glucotrol) 5 MG tabletIndicatio ns:Type 2 diabetes mellitus with hyperglycemia, without long-term current use of insulin (CMS/HCC) take 1 tablet (5MG) by oral route every day with breakfast 90 tablet 2 Active metFORMIN (Glucophage) 500 MG tabletIndicatio ns:Type 2 diabetes mellitus with hyperglycemia, without long-term current use of insulin (CMS/HCC) 2 tablet by mouth twice daily with meals 180 tablet 2 Active losartan (Cozaar) 100 MG tabletIndicatio ns:Essential hypertension Take 1 tablet (100 mg) by mouth Once per day. 90 tablet 2 Active atorvastatin (Lipitor) 40 MG tabletIndicatio ns:Essential hypertension Take 1 tablet (40 mg) by mouth in the morning. 30 tablet 1 024 2024 Discontinued(R eorder (will not trigger notification to Pharmacy)) glipiZIDE (Glucotrol) 5 MG tabletIndicatio ns:Type 2 diabetes mellitus with hyperglycemia, without long-term current use of insulin (CMS/HCC) take 1 tablet (5MG) by oral route every day with breakfast 30 tablet 2 024 2024 Discontinued(R eorder (will not trigger notification to Pharmacy)) losartan (Cozaar) 100 MG tabletIndicatio ns:Essential hypertension Take 1 tablet (100 mg) by mouth in the morning. 30 tablet 2 024 2024 Discontinued(R eorder (will not trigger notification to Pharmacy)) metFORMIN (Glucophage) 500 MG tabletIndicatio ns:Type 2 diabetes mellitus with hyperglycemia, without long-term current use of insulin (CMS/HCC) 2 tablet by mouth twice daily with meals 180 tablet 2 024 2024 Discontinued(R eorder (will not trigger notification to Pharmacy)) Active Problems Problem Noted Date Diagnosed Date Encounter for screening mamm ogram for malignant neoplasm of breast 08/12/2024 Systolic murmur 08/12/2024 Assessment & Plan (08/12/2024 4:43 PM EDT): Echocardiogram ordered Polyarthralgia 04/07/2023 Constipation 04/07/2023 Headache 01/11/2014 Kidney disease 01/11/2014 Tremor 01/11/2014 Asthma 09/21/2012 Assessment & Plan (04/07/2023 4:46 PM EST): Patient educated to avoid asthma triggers Dyslipidemia 09/21/2012 Unilateral congenital absence of kidney 09/22/19 13 Joint pain 01/21/2012 Depressive disorder 11/18/2011 Glaucoma 11/18/2011 Diabetes mellitus 09/05/2011 Assessment & Plan (08/12/2024 4:45 PM EDT): Diabetes is: not controlled - Lab Results Component Value Date HGBA1C 7.6 (A) 08/12/2024 HGBA1C 8.5 (A) 04/07/2023 HGBA1C 7.2 (H) 06/07/2021 - Lab Results Component Value Date MICROALBUR 96.0 04/07/2023 CREATININE 0.82 04/07/2023 -Changes: I refilled her medications - Diabetic eye exam:referral done - Diabetic foot exam:pending - Continue lifestyle modifications - Follow up: 3 months Assessment & Plan (04/07/2023 4:47 PM EST): - Lab Results Component Value Date HGBA1C 8.5 (A) 04/07/2023 HGBA1C 7.2 (H) 06/07/2021 - Lab Results Component Value Date MICROALBUR 8.1 06/07/2021 - Diabetic eye exam:referral today - Diabetic foot exam:pending - Continue lifestyle modifications - Continue current medications Essential hypertension 09/05/2011 Assessment & Plan (08/12/2024 4:43 PM EDT): I refilled her losartan, I advised: - Aerobic exercise to reduce BP. Initial goal of 30 min walk 3-5x/week. Increase as tolerated. - low-sodium diet (goal: <2g/day) and heart healthy diet such as DASH to reduce BP and prevent ASCVD. - Home BP monitoring 1-2 x day with goal of <140/90. BP cuff prescribed - Seek immediate medical attention for chest pain, palpitations, SOB, syncope, or sudden changes in mental status. - Do not change or discontinue current prescriptions without first consulting health care provider Assessment & Plan (04/07/2023 4:47 PM EST): [...] Encounters Date Type Department Care Team Description 08/12/2024 1:45 PM EDT Office Visit [facility] [address] [place] [id number] Calista Hooper MD Type 2 diabetes mellitus with hyperglycemia, without long-term current use of insulin ([facility]); Encounter for screening mammogram for malignant neoplasm of breast; Essential hypertension; Screening for colon cancer; Systolic murmur; Encounter for immunization 08/12/2024 Telephone [facility] [address] [place] [phone] Calista Hooper MD MAMMO ORDER FAXED 08/12/2024 Travel 08/11/2024 Telephone [facility] [address] [place] [phone] Calista Hooper MD chart prep 07/23/2024 10:00 AM EDT Office Visit [facility] ADULT DENTAL [address] [place] [phone] Kyle Henry, DORIES 07/15/2024 Telephone [facility] [address] [place] [address] Calista Hooper MD Durable Medical Equipment 07/05/2024 Telephone [facility] [address] [place] [address] Calista Hooper MD Referral 06/10/2024 1:00 PM EDT Office Visit [facility] ADULT DENTAL [address] [place] [address] Austin August DMD 05/21/2024 Population Health Risk Score [facility] (C3) Department [address] [phone] Provider, Population Health Generic 05/13/2024 Telephone [facility] [address] [place] [address] Calista Hooper MD 05/12/2024 Telephone [facility] OPTOMETRY [address] [place] [address] Randi Moreira, FALGUNI from Last 3 Months Immunizations Immunization Administration Dates Next Due Influenza injectable quadriv alent IIV4 with preservative 12/05/2015,02/27/2015 Influenza injectable quadrivalent preservative f ree 04/07/2023,03/04/2019 Influenza, IIV3, injectable 01/11/2014, 0 Influenza, Split (incl. purified surface antigen ) 01/01/2013,11/18/2011 Pfizer Covid-19 Vaccine 12+ 07/06/2020, 1 Pneumococcal Conjugate PCV 20 08/12/2024 Pneumococcal Polysaccharide PPSV23 11/18/2011 TD (adult), 2 Lf tetanus tox oid, preservative free, adsorbed 10/10/1998 Tdap 11/18/2011 Zoster, live 12/05/2015 Social History Tobacco Use Types Packs/Day Years Used Date Smoking Tobacco: Never Passive Smoke Exposure: Never Smokeless Tobacco: Former Tobacco Cessation:Counseling Given: Not Answered Alcohol Use Standard Drinks/Week Comments Never 0 (1 standard drink = 0.6 oz pur e alcohol) Housing Stability Answer Date Recorded What is your housing situation today? I have jim sing 02/07/[address] you li [...] Sign Reading Time Taken Comments Blood Pressure 150/89 08/12/2024 2:00 PM EDT Pulse 90 08/12/2024 2:00 PM EDT Temperature 36.1 ??C (97 ??F) 08/12/2024 2:00 PM EDT Respiratory Rate 14 08/12/2024 2:00 PM EDT Oxygen Saturation 99% 08/12/2024 2:00 PM EDT Inhaled Oxygen Concentration - - Weight 63.5 kg (140 lb) 08/12/2024 2:00 PM EDT Height 152.4 cm (5') 08/12/2024 2:00 PM EDT Body Mass Index 27.34 08/12/2024 2:00 PM EDT Plan of Treatment Health Maintenance Due Date Last Done Comments CT Colonography 1955 Colonoscopy 1955 Colorectal Cancer Screening 1955 Depression Screening 1955 FIT DNA/Cologuard 1955 FIT 1955 FOBT 1955 Sigmoidoscopy 1955 Diabetes: Foot Exam 1965 Eye Exam 1965 Alcohol/Substance Use Screening 1967 Dental Prophylaxis 04/09/2009 10/06/2008 RSV Patients and Patients Aged 60 years or older (1 - Risk 60-74 years 1-dose series) 2015 Zoster Vaccines (2 of 3) 01/30/2016 12/05/2015 Dental X-Ray: Full Mouth 04/06/2018 04/05/2015 DTaP/Tdap/Td Vaccines (2 - Td or Tdap) 11/17/2021 11/18/2011, 10/10/1998 Lipid Panel 06/07/2022 06/07/2021 Mammogram 08/28/2023 08/27/2021, 08/27/2021 COVID-19 Vaccine ( season) 2023 07/06/2020, 06/15/2020 SDOH Screening 03/27/2024 03/27/2023 Diabetes: Urine Protein Screening 04/07/2024 08/12/2024, 04/07/2023, 06/07/2021 Influenza Vaccine (Season Ended) 2024 04/07/2023, 03/04/2019, 12/05/2015, Additional history exists Diabetes: Hemoglobin A1C 11/12/2024 025, 04/07/2023, 06/07/2021 Dental Oral Exam 01/24/2025 07/23/2024, 10/2018, 04/04/2017, Additional history exists Dental X-Ray: Bitewings 06/11/2025 06/11/19, 04/04/2017, 04/05/2015, Additional history exists Tobacco Screening 08/12/2025 08/12/2024 Hepatitis C Screening Completed 06/07/2021 Pneumococcal Vaccine: 50+ Years Completed 08/12/2024, 11/18/2011 HIB Vaccines Aged Out No longer eligi [...] Procedure Name Priority Date/Time Associated Diagnosis Comments ALBUMIN, RANDOM URINE W/CREATININE Routine 08/12/2024 3:11 PM EDT Type 2 diabetes mellitus with hyperglycemia, without long-term current use of insulin ([facility]) POCT GLYCATED HEMOGLOBIN, TOTAL Routine 08/12/2024 2:02 PM EDT Type 2 diabetes mellitus with hyperglycemia, without long-term current use of insulin ([facility]) POCT GLUCOSE Routine 08/12/2024 2:02 PM EDT Type 2 diabetes mellitus with hyperglycemia, without long-term current use of insulin ([facility]) CASE PRESENTATION, DETAILED AND EXTENSIVE TREATMENT PLANNING Routine 07/23/2024 10:00 AM EDT COMPREHENSIVE PERIODONTAL EVALUATION - NEW OR ESTABLISHED PATIENT Routine 07/23/2024 10:00 AM EDT INTRAORAL - PERIAPICAL EACH ADDITIONAL RADIOGRAPHIC IMAGE Routine 07/23/2024 10:00 AM EDT INTRAORAL - PERIAPICAL EACH ADDITIONAL RADIOGRAPHIC IMAGE Routine 07/23/2024 10:00 AM EDT INTRAORAL - PERIAPICAL EACH ADDITIONAL RADIOGRAPHIC IMAGE Routine 07/23/2024 10:00 AM EDT INTRAORAL - PERIAPICAL EACH ADDITIONAL RADIOGRAPHIC IMAGE Routine 07/23/2024 10:00 AM EDT INTRAORAL - PERIAPICAL EACH ADDITIONAL RADIOGRAPHIC IMAGE Routine 07/23/2024 10:00 AM EDT INTRAORAL - PERIAPICAL FIRST RADIOGRAPHIC IMAGE Routine 07/23/2024 10:00 AM EDT PERIODIC ORAL EVALUATION - ESTABLISHED PATIENT Routine 07/23/2024 10:00 AM EDT CASE PRESENTATION, DETAILED AND EXTENSIVE TREATMENT PLANNING Routine 06/10/2024 1:00 PM EDT BITEWING - SINGLE RADIOGRAPHIC IMAGE Routine 06/10/2024 1:00 PM EDT INTRAORAL - PERIAPICAL EACH ADDITIONAL RADIOGRAPHIC IMAGE Routine 06/10/2024 1:00 PM EDT INTRAORAL - PERIAPICAL FIRST RADIOGRAPHIC IMAGE Routine 06/10/2024 1:00 PM EDT PALLIATIVE (EMERGENCY) TREATMENT OF DENTAL PAIN - MINOR PROCEDURE Routine 06/10/2024 1:00 PM EDT HM MAMMOGRAPHY Routine 08/27/2021 ZZZ HISTORICAL HEPATITIS C AB W/REFL TO HCV RNA, QN, PCR Routine 06/07/2021 2:30 PM EDT LIPID PANEL, STANDARD Routine 06/07/2021 2:30 PM EDT INTRAORAL - COMPLETE SERIES OF RADIOGRAPHIC IMAGES Routine 04/05/2015 12:00 AM EST PROPHYLAXIS - ADULT Routine 10/06/2008 1 2:00 AM EDT from Last 3 Months or Most Recently Relevant to Health Maintenance Results * (ABNORMAL) Albumin, Random Urine W/Creatinine (08/12/2024 3:11 PM EDT) Creatinine, Urine 123.15 mg/dL [facility] Microalbumin Urine 137.0 mg/L [facility] Microalbum Creatinine Ratio Ur 111.2(H) <30 ug/mg cr [facility] Comment:Albumin/Creatinine R atio Reference Ranges: Normal: < 30 ug/mg creatinine Microalbuminuria: 30 - 300 ug/mg creatinineClinical Albuminuria: > 300 ug/mg creatinine Urine (Urine, Random) 08/12/2024 3:11 PM EDT 08/12/2024 4:02 PM EDT us Calista Nuñez MD LAB URINE ORDERABLES Final Result [facility] [address] [place] [phone] * (ABNORMAL) POCT HGB A1C (08/12/2024 2:02 PM EDT) Hemoglobin A1C 7.6(A) 4.0 - 6.0 % QC Media Lot # [id number] Lot# Expiration Date , Blood 08/12/2024 2:[address] [facility] Calista Nuñez MD POINT OF CARE TEST EN TER/EDIT ORDERABLES Final Result * POCT Glucose (08/12/2024 2:02 PM EDT) Glucose Blood, POC 165 60 - 200 mg/dL QC Media Lot # [id number] Lot# Expiration Date 708 Blood Capillary blood specimen / Unknown 08/12/2024 2:[address] [facility] Calista Nuñez MD POINT OF CARE TEST EN TER/EDIT ORDERABLES Final Result * Mammography (08/27/2021) Mammogram BIRADS 1 Anatomical Region Laterality Modality Other Result [facility] Historical Provider HEALTH MAINTENANCE Final Result * HEPATITIS C AB W/REFL TO HCV RNA, QN, PCR (06/07/2021 2:30 PM EDT) HEPATITIS C ANTIBODY NON-REACT MARCIE NON-REACT MARCIE [facility] INDEX 0.01 <1.00 [facility] Comment: ?? HCV antibody was non-reactive. There is no laboratory ?? evidence of HCV infection. ?? In most cases, no further action is required. However, if recent HCV exposure is suspected, a test for HCV RNA (test code 42571) is suggested. ?? For additional information please refer to http://education.[employer].TuneWiki/faq/WWK52o1 (This link is being provided for informational/ educational purposes only.) ?? 06/07/2021 2:[address] [facility] Inna Whyte NP HISTORICAL/NON ORDERABLE LABS F inal Result [facility] [address] * (ABNORMAL) LIPID PANEL, STANDARD (06/07/2021 2:30 PM EDT) Chol/HDLC Ratio 5.2(H) <5.0 (calc) [facility] ?? LDL-C is now calculated using the AnantPedraza ?? calculation, which is a validated novel method providing ?? better accuracy than the Friedewald equation in the ?? estimation of LDL-C. ?? Rio CORTEZ et al. KATELYNN. 2013;310(19): 9431-2245 ?? (http://education.[employer]gent One.TuneWiki/faq/BYZ375) Non-HDL Cholesterol 176(H) <130 mg/dL (calc) [facility] Comment: For patients with diabetes plus 1 major ASCVD risk ?? factor, treating to a non-HDL-C goal of <100 mg/dL ?? (LDL-C of <70 mg/dL) is considered a therapeutic ?? option. Triglycerides 229(H) <150 mg/dL [facility] Comment: ?? If a non-fasting specimen was collected, consider repeat triglyceride testing on a fasting specimen if clinically indicated. ?? Sarwat et al. J. of Clin. Lipidol. 2015;9:129-169. ?? 06/07/2021 2:30 PM EDT us Inna Whyte NP LAB BLOOD ORDERABLES Final Resu lt [facility] [address] from Last 3 Months or Most Recently Relevant to Health Maintenance Insurance [facility] STANDARD MEDICARE DENTAL-[facility] MEDICAID STAND ADULT Care Teams C4 Planner Relationship Specialty Start Date End Date Calista Hooper MD [address] [place] [phone] PCP - General Internal Medicine 02/11/23
[2024-08-12 18:03] LABS: Alanine Aminotransferase 16 U/L (0-31); Albumin Level 4.1 g/dL (3.5-5.0); Alkaline Phosphatase 136 U/L (39-117); Anion Gap 9 (12-20); Aspartate Amino Transferase 16 U/L (5-31); Bilirubin Total 0.4 mg/dL (0.0-1.0); Blood Urea Nitrogen 13 mg/dL (9-16); Calcium 9.4 mg/dL (8.4-10.2); Carbon Dioxide 30 mmol/L (22-29); Chloride 109 mmol/L (96-108); Cholesterol 219 mg/dL (<200); Estimated Glomerular Filt Rate > 60; Glucose Random 143 mg/dL (60-115); HDL Cholesterol 48 mg/dL (>40); LDL Cholesterol Calculated 142 mg/dL (<100); Sodium 144 mmol/L (135-145); Total Protein 6.8 g/dL (6.5-8.0); Triglycerides 146 mg/dL (<150)
== END 2024-08-12 15:10 | disposition home or self-care (01) ==
LOC: HO.HHCL 15:09
PROVIDERS: Visit Provider Internal Medicine
DX: E11.65 Type 2 diabetes mellitus with hyperglycemia (principal)
CPT/HCPCS: 36415; 80053; 80061; 82043; 82570

== ENCOUNTER 2024-10-12 11:42 | Outpatient (AMB) | payer MEDICARE, MEDICAID, SELFPAY ==
[2024-10-12 11:47] VITALS: PULSE 87; O2SAT 98; BMI 27.9
--- NOTE | 2024-10-12 11:47 | HO.NEPHOV ---
Vital Signs 10/12/24 11:47 Height 4 ft 11 in Weight 138 lb BMI 27.9 Pulse 87 Pulse Source Pulse Oximeter Pulse Oximetry (%) 98 Oxygen Delivery Method Room Air Intake Visit Reasons: ENP: Microalbuminuria R/S 08/30/24 Conf Straddle Truck Driver Required: Yes Straddle Truck Driver Services: Straddle Truck Driver Offered & Declined (Daughter will translate ) Accompanied by: Daughter Allergies ibuprofen (IBUPROFEN) Allergy (Unknown, Verified 10/12/24 11:51) UPSET STOMACH, stomach pain pravastatin Adverse Reaction (Unknown, Verified 10/12/24 11:51) cannot swallow large tabler Medication List - Last Reconciled 10/12/24 by Mc Farrar MD acetaminophen 500 mg PO Q8H PRN albuterol sulfate mg inhalation Q6H PRN albuterol sulfate 90 mcg/actuation 2 puffs inhalation Q4H PRN atorvastatin (Lipitor) 40 mg PO DAILY cetirizine 10 mg PO DAILY PRN dorzolamide-timolol 22.3-6.8 mg/mL 1 drp ophthalmic (eye) glipizide 5 mg PO QAM losartan 100 mg PO DAILY metformin 1,000 mg PO BID omega-3 fatty acids-fish oil 340-1,000 mg 1 cap PO BID trazodone 25 mg PO BEDTIME PRN HPI Comments Details: The patient is a 69-year-old female presenting with microalbuminuria and diabetes mellitus. She is currently taking glipizide and metformin for glycemic control. The patient reports swelling in her legs, which is indicative of peripheral edema. Additionally, she experiences foot pain, although it is unclear if she takes any analgesics for this symptom. She denies smoking and reports drinking a lot of water, which is beneficial for her condition. There is no mention of recent surgeries or hospitalizations, although there is a vague reference to a recent operation. [facility] Medical History (Updated 10/12/24 @ 12:00 by Mc Farrar MD) Systolic murmur Polyarthralgia Unilateral congenital absence of kidney Tremor Kidney disease Hearing loss Headache Glaucoma Essential hypertension Dyslipidemia Diabetes mellitus Depressive disorder Review of Systems Const Denies anorexia, Denies fever(s) and Denies weakness Eyes Denies blurry vision Card Denies no additional complaints and Denies dyspnea Resp Reports no additional complaints, Reports cough and Denies dyspnea GI Denies melena and Denies diarrhea Denies hematuria Musc Denies tingling Skin/Breast Denies rash Neuro Denies focal weakness, Denies tingling, Denies tremor(s) and Denies weakness Physical Exam Vital Signs: Last Vital Signs Pulse 87 10/12/24 11:47 Pulse Ox 98 10/12/24 11:47 Oxygen Delivery Method Room Air 10/12/24 11:47 BMI result Body Mass Index 27.9 Const General: comfortable Nutritional Appearance: well nourished Orientation/consciousness: patient oriented x3 HEENT Head: No normal to inspection Mouth: moist mucous membranes Neck Neck: Yes supple and Yes no JVD Resp Auscultation: clear to auscultation bilaterally, no rales and rub present Cardio Jugular venous distension: no JVD Palpation: no palpable S3 and no palpable S4 Heart sounds: no rubs GI Palpation (GI): Soft to palpation and nontender Percussion: No Fluid wave present General: Yes no CVA tenderness Back/Spine/Pelvis Back: no CVA tenderness Skin General skin exam: no rashes or lesions noted Neuro General: patient oriented x3 Extrem General: Yes no pedal edema and No clubbing Results Reviewed Nephrology Results: Hgb, (12.0-16.0) 14.0 g/dl 04/07/23 WBC, (4.8-10.8) 7.6 X10*3/uL 04/07/23 Plt Count, (160-400) 331 X10*3/uL 04/07/23 Sodium, (135-145) 145 mmol/L Today Potassium, (3.3-5.1) 3.7 mmol/L Today Chloride, (96-108) 107 mmol/L Today Carbon Dioxide, (22-29) 31 mmol/L H Today BUN, (9-16) 10 mg/dL Today Creatinine, (0.5-1.4) 0.66 mg/dL Today Calcium, (8.4-10.2) 9.0 mg/dL Today Urine Protein, (Neg-Trace) 30 (1+) mg/dL H Today Urine Creatinine 71.55 mg/dL Today Assessment & Plan Assessment & Plan (1) Type 2 diabetes mellitus: Code(s): E11.9 - Type 2 diabetes mellitus without complications Category: Medical (2) Proteinuria: Code(s): R80.9 - Proteinuria, unspecified Category: Medical Plan 69-year-old woman with microalbuminuria in the setting of diabetes mellitus. Microalbuminuria most likely due to underlying diabetic kidney disease. Goal is to slow the progression of renal disease I will add losartan 25 mg a day. Titrate dose as tolerated. Maintain blood pressure less than 130/80 Maintain A1c less than 7%. Continue to avoid nephrotoxic agents. Further workup will be based on the outcome of the baseline investigations as outlined below. Orders: Orders Basic Metabolic Panel Today E11.9 - Type 2 diabetes mellitus without complications, R80.9 - Proteinuria, unspecified Creatinine Urine Today E11.9 - Type 2 diabetes mellitus without complications, R80.9 - Proteinuria, unspecified Total Protein Urine Random Today E11.9 - Type 2 diabetes mellitus without complications, R80.9 - Proteinuria, unspecified UA and rflx microscopic Today E11.9 - Type 2 diabetes mellitus without complications, R80.9 - Proteinuria, unspecified Protein Electrophoresis, Serum Today E11.9 - Type 2 diabetes mellitus without complications, R80.9 - Proteinuria, unspecified Coding Level of Care Code New Pt Level 4 (49127) Diagnoses Type 2 diabetes mellitus E11.9 Proteinuria R80.9
--- OUTSIDE RECORDS SUMMARY | 2024-10-12 12:33 | XMS_ITS | Clinical Summary ---
Author Organization [facility]y Address [address] [place] [address] Care Team Providers Care Cena Name Role Phone Unavailable Primary Care Provider [...] Vaccine ( - 2023-2 5 season) 2023 Depression Screening 03/10/2024 Influenza Vaccine (#1) 2024 RSV Immunization Adult Patie nts (1 [...]
== END 2024-10-12 12:51 | disposition home or self-care (01) ==
LOC: HO.HKA 11:43
PROVIDERS: PCP Internal Medicine; Visit Provider Internal Medicine Hypertension Specialist
DX: E11.9 Type 2 diabetes mellitus without complications (principal); R80.9 Proteinuria, unspecified
CPT/HCPCS: 99204

== ENCOUNTER 2024-10-12 12:12 | Outpatient (REF) | payer MEDICARE, MEDICAID, SELFPAY ==
--- OUTSIDE RECORDS SUMMARY | 2024-10-12 12:55 | XMS_ITS | Clinical Summary ---
Author Organization [employer] Address [address] [place] [address] Care Team Providers Care Whale Trainer Name Role Phone Calista Hooper MD Primary [...] of breath. 18 g 2 4 Active buPROPion SR (Wellbutrin SR) 150 MG 12 hr tabletIndication s:Depressive disorder Take 1 tablet (150 mg) by mouth in the morning. 30 tablet 2 4 Active cholecalciferol (Vitamin D-3) 50 MCG (2000 UT) tabletIndication s:Type 2 diabetes mellitus with hyperglycemia, without long-term current use of insulin ([facility]) Take 2,000 Units by mouth in the morning. 30 tablet 2 4 Active Fluticasone-Salm eterol (Advair Diskus) 500-50 MCG/ACT aerosol powderIndication s:Asthma, unspecified asthma severity, unspecified whether complicated, unspecified whether persistent Inhale 1 puff every 12 (twelve) hours. 1 each 2 4 Active glucose blood (FREESTYLE LITE) test stripIndications :Type 2 diabetes mellitus with hyperglycemia, without long-term current use of insulin ([facility]) Use 1 strip twice a day 100 each 2 4 Active montelukast (Singulair) 10 MG [...] hyperglycemia, without long-term current use of insulin ([facility]) 1 each 2 times daily. 100 each 2 4 Active Blood Glucose Monitoring Suppl (Blood Glucose Monitor System) w/Device kitIndications:T ype 2 diabetes mellitus with hyperglycemia, without long-term current use of insulin (CMS/HCC) 1 each 2 times daily. 1 kit 4 Active Lancets miscIndications: Type 2 diabetes mellitus with hyperglycemia, without long-term current use of insulin (CMS/HCC) 1 each 2 times daily. 100 each 2 4 Active lidocaine (Lidoderm) 5 % patchIndications :Polyarthralgia Apply 1 patch topically in the morning. Remove & discard patch within 12 hours or as directed by . 30 patch 2 4 Active Blood Pressure Monitoring (Blood Pressure Cuff) miscIndications: Essential hypertension 1 each in the morning. 1 each 5 Active atorvastatin (Lipitor) 40 MG tabletIndication s:Essential hypertension Take 1 tablet (40 mg) by mouth Once per day. 90 tablet 2 5 Active glipiZIDE (Glucotrol) 5 MG tabletIndication s:Type 2 diabetes mellitus with hyperglycemia, without long-term current use of insulin (CMS/HCC) take 1 tablet (5MG) by oral route every day with breakfast 90 tablet 2 5 Active metFORMIN (Glucophage) 500 MG tabletIndication s:Type 2 diabetes mellitus with hyperglycemia, without long-term current use of insulin (CMS/HCC) 2 tablet by mouth twice daily with meals 180 tablet 2 5 Active losartan (Cozaar) 100 MG tabletIndication s:Essential hypertension Take 1 tablet (100 mg) by mouth Once per day. 90 tablet 2 5 Active Active Problems Problem Noted Date Diagnosed [...] Encounters Date Type Department Care Team Description 08/17/2024 Telephone [facility] [address] [place] [phone] Calista Hooper MD SEP RECALL 08/13/2024 Results Follow-Up [address] [address] Calista Hooper MD POCT Glucose, POCT HGB A1C, Lipid Panel, Standard, Additional followed-up results: 2 08/12/2024 1:45 PM EDT Office Visit [address] [phone] Calista Hooper MD Type 2 diabetes mellitus with hyperglycemia, without long-term current use of insulin ([facility]); Encounter for screening mammogram for malignant neoplasm of breast; Essential hypertension; Screening for colon cancer; Systolic murmur; Encounter for immunization 08/12/[address] [address] Calista Hooper MD MAMMO ORDER FAXED 08/12/2024 Travel 08/11/[address] [address] Calista Hooper MD chart prep 07/23/2024 10:00 AM EDT Office Visit [facility] [address] [place] [phone] Kyle Henry, DDS 07/15/[address] [address] Calista Hooper MD Durable Medical Equipment from Last 3 Months Immunizations Immunization Administration [...] 90 08/12/2024 2:00 PM EDT Temperature 36.1 C (97 F) 08/12/2024 2:00 PM EDT Respiratory Rate 14 08/12/2024 2:00 PM EDT Oxygen Saturation 99% 08/12/2024 2:00 PM EDT Inhaled Oxygen Concentration - - Weight 63.5 kg (140 lb) 08/12/2024 2:00 PM EDT Height 152.4 cm (5') 08/12/2024 2:00 PM EDT Body Mass Index 27.34 08/12/2024 2:00 PM EDT Plan of Treatment Upcoming Encounters Date Type Department Care Team (Late st Contact Info) Description 10/12/2024 1:45 PM EDT Office Visit [facility] [address] [place], [place] [phone] Quincy Bradshaw [address] [place] [address] 11/17/2024 2:00 PM EDT Office Visit [facility] [address] [place], [place] [phone] Calista Hooper MD [address] [place], [place] [phone] Health Maintenance Due Date Last Done Comments [...] - Td or Tdap) 11/17/2021 11/18/2011, 10/10/1998 Mammogram 08/28/2023 08/27/2021, 08/27/2021 COVID-19 Vaccine (3 - 2023- season) 2023 07/06/2020, 06/15/2020 SDOH Screening 03/27/2024 03/27/2023 Influenza Vaccine (#1) 2024 , 03/04/2019, 12/05/2015, Additional history exists Diabetes: Hemoglobin A1C 11/12/2024 025, 04/07/2023, 06/07/2021 Dental Oral Exam 01/24/2025 07/23/2024, 10/2018, 04/04/2017, Additional history exists Dental X-Ray: Bitewings 06/11/2025 06/11/19 25, 04/04/2017, 04/05/2015, Additional history exists Diabetes: Urine Protein Screening 08/12/2025 08/12/2024, 04/07/2023, 06/07/2021 Lipid Panel 08/12/2025 08/12/2024, 06/07/2021 Tobacco Screening 08/12/2025 08/12/2024 Hepatitis C Screening [...] Procedure Name Priority Date/Time Associated Diagnosis Comments COMPREHENSIVE METABOLIC PANEL Routine 08/12/2024 3:11 PM EDT Type 2 diabetes mellitus with hyperglycemia, without long-term current use of insulin ([facility]) ALBUMIN, RANDOM URINE W/CREATININE Routine 08/12/2024 3:11 PM EDT Type 2 diabetes mellitus with hyperglycemia, without long-term current use of insulin ([facility]) LIPID PANEL, STANDARD Routine 08/12/2024 3:11 PM EDT Type 2 diabetes mellitus with hyperglycemia, without long-term current use of insulin ([facility]) POCT GLYCATED HEMOGLOBIN, TOTAL Routine 08/12/2024 2:02 PM EDT Type 2 diabetes mellitus with hyperglycemia, without long-term current use of insulin ([facility]) POCT GLUCOSE Routine 08/12/2024 2:02 PM EDT Type 2 diabetes mellitus with hyperglycemia, without long-term current use of insulin ([facility]) CASE PRESENTATION, DETAILED AND EXTENSIVE TREATMENT PLANNING [...] ESTABLISHED PATIENT Routine 07/23/2024 10:00 AM EDT BITEWING - SINGLE RADIOGRAPHIC IMAGE Routine 06/10/2024 1:00 PM EDT HM MAMMOGRAPHY Routine 08/27/2021 ZZZ HISTORICAL HEPATITIS C AB W/REFL TO HCV RNA, QN, PCR Routine 06/07/2021 2:30 PM EDT INTRAORAL - COMPLETE SERIES OF RADIOGRAPHIC IMAGES Routine 04/05/2015 12:00 AM EST PROPHYLAXIS - ADULT Routine 10/06/2008 1 2:00 AM EDT from Last 3 Months or Most Recently Relevant to Health Maintenance Results * (ABNORMAL) Albumin, Random Urine W/Creatinine (08/12/2024 3:11 PM EDT) Pathologist [facility] Creatinine, Urine 123.15 mg/dL [facility] Microalbumin Urine 137.0 mg/L H [facility] Microalbum Creatinine Ratio Ur 111.2(H) <30 ug/mg cr [facility] Comment:Albumin/Creatinine R at Reference Ranges: Normal: < 30 ug/mg creatinine Microalbuminuria: 30 - 300 ug/mg creatinineClinical Albuminuria: > 300 ug/mg creatinine Urine (Urine, Random) 08/12/2024 3:11 PM EDT 08/12/2024 4:02 PM EDT us Calista Nuñez MD LAB URINE ORDERABLES Final Result [facility] [address] [place] [phone] * (ABNORMAL) Lipid Panel, Standard (08/12/2024 3:11 PM EDT) Triglycerides 146 <150 mg/dL [facility] Comment:Desirable Triglyceri de: less than 150 mg/dLBorderline High Triglyceride 150-199 mg/dLHigh Triglyceride: 200-499 mg/dLVery High Triglyceride: greater than or equal to 5OO mg/dL Cholesterol 219(H) <200 mg/dL [facility] Comment:Desirable Cholestero l: less than 200 mg/dLBorderline High Cholesterol: 200-239 mg/dLHigh Cholesterol: greater than 239 mg/dL LDL Cholesterol Calculated 142(H) <100 mg/dL [facility] Comment:Desirable LDL: less than 100 mg/dLNear Optimal/Above Optimal LDL: 110- 129 mg/dLBorderline High LDL: 130-159 mg/dLHigh LDL: 160-189 mg/dLVery High LDL: greater than or equal to 190 mg/dL HDL Cholesterol 48 >40 mg/dL [facility] Comment:Desirable HDL: great er than 40 mg/dL Note: This HDL assay may give artificially low results in patients with liver disease. Blood Venous blood specimen / Unknown 08/12/2024 3:11 PM EDT 08/12/2024 4:03 PM EDT us Calista Nuñez MD LAB BLOOD ORDERABLES Final Result [facility] [address] [place] [phone] * (ABNORMAL) Comprehensive Metabolic Panel (08/12/2024 3:11 PM EDT) Sodium 144 135 - 145 mmol/L [facility] Potassium 4.0 3.3 - 5.1 mmol/L [facility] Chloride 109(H) 96 - 108 mmol/L [facility] Carbon Dioxide 30(H) 22 - 29 mmol/L [facility] Anion Gap 9(L) 12 - 20 [facility] Urea Nitrogen (BUN) 13 9 - 16 mg/dL [facility] Creatinine, Serum 0.81 0.5 - 1.4 mg/dL [facility] Estimated Glomerular Filt Rate >60 [facility] Comment:Chronic Kidney Disea se: Estimated GFR < 60 mL/min/1.98p8[place]m Kidney Disease: Estimated GFR < 15 mL/min/1.73m2 Glucose 143(H) 60 - 115 mg/dL [facility] Calcium 9.4 8.4 - 10.2 mg/dL [facility] Bilirubin, Total 0.4 0.0 - 1.0 mg/dL [facility] Aspartate Amino Transferase 16 5 - 31 U/L [facility] Alanine Aminotransferase 16 0 - 31 U/L [facility] Total Protein 6.8 6.5 - 8.0 g/dL [facility] Albumin Level 4.1 3.5 - 5.0 g/dL [facility] Alkaline Phosphatase 136(H) 39 - 117 U/L [facility] Blood Venous blood specimen / Unknown 08/12/2024 3:11 PM EDT 08/12/2024 4:03 PM EDT us Calista Nuñez MD LAB BLOOD ORDERABLES Final Result [facility] [address] [place] [phone] * (ABNORMAL) POCT HGB A1C (08/12/2024 2:02 PM EDT) Pathologist [facility] Hemoglobin A1C 7.6(A) 4.0 - 6.0 % QC Media Lot # [id number] Lot# Expiration Date Blood 08/12/2024 2:02 PM EDT Calista Nuñez MD POINT OF CARE TEST EN TER/EDIT ORDERABLES Final Result * POCT Glucose (08/12/2024 2:02 PM EDT) [facility] Glucose Blood, POC 165 60 - 200 mg/dL QC Media Lot # [id number] Lot# Expiration Date Blood Capillary blood specimen / Unknown 08/12/2024 2:02 PM EDT Calista Nuñez MD POINT OF CARE TEST EN TER/EDIT ORDERABLES Final Result * Mammography (08/27/2021) Pathologist [facility] HM Mammogram BIRADS 1 Anatomical Region Laterality Modality Other Result [facility] Viktor Moeller MD HEALTH MAINTENANCE Final Result * HEPATITIS C AB W/REFL TO HCV RNA, QN, PCR (06/07/2021 2:30 PM EDT) [facility] HEPATITIS C ANTIBODY NON-REACT [facility] NON-REACT [facility] INDEX 0.01 <1.00 [facility] Comment: HCV antibody was non-reactive. There is no laboratory evidence of HCV infection. In most cases, no further action is required. However, if recent HCV exposure is suspected, a test for HCV RNA (test code 17225) is suggested. For additional information please refer to http://education.[place]town/faq/JPY55m9 (This link is being provided for informational/ educational purposes only.) 06/07/2021 2:30 PM EDT us Inna Whyte NP HISTORICAL/NON ORDERABLE LABS F inal Result [facility] [address] from Last 3 Months or Most Recently Relevant to Health Maintenance Insurance [facility] STANDARD MEDICARE [place]ICAID STAND ADULT Care Teams Whale Trainer Relationship Specialty Start Date End Date Calista Hooper MD [address] [place] [phone] PCP - General Internal Medicine 02/11/23
[2024-10-12 13:57] LABS: Anion Gap 11 (12-20); Blood Urea Nitrogen 10 mg/dL (9-16); Calcium 9.0 mg/dL (8.4-10.2); Carbon Dioxide 31 mmol/L (22-29); Chloride 107 mmol/L (96-108); Estimated Glomerular Filt Rate > 60; Potassium 3.7 mmol/L (3.3-5.1); Sodium 145 mmol/L (135-145)
[2024-10-12 14:02] LABS: Appearance Urine Clear; Glucose Urine UA Negative (Negative); PH 6.0 (5.0-9.0); Specific Gravity - Urine 1.015 (1.005-1.025); UMIC TRIGGER UA YES
[2024-10-12 14:44] LABS: Total Protein Urine Random 27 mg/dL (<12)
[2024-10-14 22:18] LABS: Prot Elec - Albumin 4.2 g/dL (3.8-4.8); Prot Elec - Alpha1 0.3 g/dL (0.2-0.3); Prot Elec - Alpha2 0.7 g/dL (0.5-0.9); Prot Elec - Beta 1 0.4 g/dL (0.4-0.6); Prot Elec - Beta 2 0.4 g/dL (0.2-0.5); Prot Elec - Gamma 0.9 g/dL (0.8-1.7); Prot Elec - Total Protein 6.8 g/dL (6.1-8.1)
== END 2024-10-12 12:13 | disposition home or self-care (01) ==
LOC: HO.10HDL 12:12
PROVIDERS: Visit Provider Internal Medicine Hypertension Specialist
DX: E11.9 Type 2 diabetes mellitus without complications (principal); R80.9 Proteinuria, unspecified; Z79.84 Long term (current) use of oral hypoglycemic drugs; Z79.899 Other long term (current) drug therapy
CPT/HCPCS: 36415; 80048; 81001; 81003; 82570; 84156; 84165; 99202

== ENCOUNTER 2024-10-28 13:37 | Outpatient (REF) | payer MEDICARE, MEDICAID, SELFPAY ==
--- OUTSIDE RECORDS SUMMARY | 2024-10-28 13:47 | XMS_ITS | Clinical Summary ---
Author Organization [facility] Address [address] [place] [address] Care Team Providers Care Children'S Service Worker Name Role Phone Unavailable Primary Care Provider [...]
--- OUTSIDE RECORDS SUMMARY | 2024-10-28 13:47 | XMS_ITS | Encounter Summary ---
Author Organization [employer] Address [address] [place] [address] Care Team Providers Care Framing Mill Supervisor Name Role Phone Calista Hooper MD Primary Care Provide r Encounter Details Date Type Department Care Team ([facility] Contact Info) Description 10/27/2024 Telephone [facility] [address] [place], [place] [phone] [place] [address] [place], [place] [phone] Social History Tobacco Use Types Packs/Day Years Used Date Smoking Tobacco: Never Passive Smoke Exposure: Never Smokeless Tobacco: Former Alcohol Use Standard Drinks/Week Comments Never 0 [...] AM EDT documented as of this encounter Miscellaneous Notes * Telephone Encounter - Albino Flowers - 10/27/2024 3:38 PM EDT Called to offer a new patient appointment due to a cancellation but there was no answer so I left avoicemail. documented in this encounter Plan of Treatment Upcoming Encounters Date Type Department Care Team (Late st Contact Info) Description 11/17/2024 2:00 PM EDT Office Visit [facility] [address] [place] [address] Calista Hooper MD [address] [place] [address] documented as of this encounter Visit Diagnoses Not on filedocumented in this encounter Care Teams Framing Mill Supervisor Relationship Specialty Start Date End Date Calista Hooper MD [address] [place] [address] PCP - General Internal Medicine 02/11/23 documented as of this encounter
== END 2024-10-28 13:38 | disposition home or self-care (01) ==
LOC: HO.MAMMO 13:37
PROVIDERS: PCP Internal Medicine; Visit Provider Internal Medicine
DX: Z12.31 Encounter for screening mammogram for malignant neoplasm of breast (principal)
CPT/HCPCS: 77063; 77067

== ENCOUNTER → 2024-10-28 13:45 | Outpatient (BNV) | payer MEDICARE, MEDICAID, SELFPAY | PROVIDERS: PCP Internal Medicine; Visit Provider Internal Medicine | DX: Z12.31 Encounter for screening mammogram for malignant neoplasm of breast (principal) | CPT/HCPCS: 77063; 77067 ==

== ENCOUNTER 2024-11-17 14:57 | Outpatient (REF) | payer MEDICARE, MEDICAID, SELFPAY ==
--- NOTE | ~2024-11-17 | XR_ITS ---
EXAMINATION: XR WRIST, RIGHT CLINICAL INFORMATION: pain COMPARISON: None available. TECHNIQUE: PA, lateral, oblique, and scaphoid views of the right wrist. 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 There is moderate narrowing with sclerosis and osteophytes involving the first carpal metacarpal joint and scaphoid trapezial trapezoid joint. Probable degenerative cystic changes noted in the capitate, ulnar side of the lunate, and triquetrum.. There is no joint diastases. Lucency traversing scaphoid is probably projectional in nature. XR/XR wrist RT min 3V IMPRESSION: First CMC and STT joint osteoarthritis. Scaphoid lucency is probably projectional in nature. If there is clinical concern for scaphoid fracture, follow-up x-ray in 7-10 days. Electronically signed by: Ramirez Freedman MD 11/17/2024 04:12 PM EDT
--- NOTE | ~2024-11-17 | XR_ITS ---
EXAMINATION: XR LUMBOSACRAL SPINE CLINICAL INFORMATION: pain COMPARISON: None available. TECHNIQUE: Three views of the lumbosacral spine. FINDINGS: There are 5 nonrib-bearing lumbar segments. There is mild convex right curvature of the lumbar spine. Large anterior osteophytes, some of which are bridging, are noted in the lower thoracic spine. Moderate anterior aspects are present in the mid to upper lumbar spine. There is mild disc space narrowing throughout the lumbar spine, greatest at L3-4. No other abnormalities are noted. XR/XR lumbar spine 2-3V IMPRESSION: Multilevel degenerative change, likely related to diffuse idiopathic skeletal hyperostosis (DISH) Electronically signed by: Ramirez Freedman MD 11/17/2024 04:13 PM EDT
--- NOTE | ~2024-11-17 | XR_ITS ---
EXAMINATION: XR KNEE, RIGHT CLINICAL INFORMATION: pain COMPARISON: None available. TECHNIQUE: Four views of the right knee. FINDINGS: There is moderate narrowing of the medial joint space and mild narrowing of the lateral. There are tricompartmental marginal osteophytes. There is a joint effusion. There are small chronic soft tissue ossifications lateral to the knee joint. No other abnormalities are evident. XR/XR knee RT 4V IMPRESSION: Moderate osteoarthritis and a joint effusion Electronically signed by: Ramirez Freedman MD 11/17/2024 04:14 PM EDT
--- OUTSIDE RECORDS SUMMARY | 2024-11-17 14:00 | XMS_ITS | Encounter Summary ---
Author Organization [employer] Address [address] [facility] [address] [place] [address] Care Team Providers Care Commercial Electrician Name Role Phone Calista Hooper MD Primary Care Provide r Reason for Referral * Medications - Closed Specialty Diagnoses / Procedures Referred By Javier erazo Referred To Contact Diagnoses Asthma, unspecified asthma severity, unspecified whether complicated, unspecified whether persistent Calista Hooper MD [address] [place] [address] Phone: tel: fax: Referral ID Status Reason Start Date Expiration Date Visits Re quested Visits Authorized [id number] Closed 1 1 * Consultation (Routine) - Pending Review Specialty Diagnoses / Procedures Referred By Javier erazo Referred To Contact Podiatry Diagnoses Type 2 diabetes mellitus with hyperglycemia, without long-term current use of insulin ([facility]) Callus Calista Hooper MD [address] [place] [address] Phone: tel: fax: Referral ID Status Reason Start Date Expiration Date Visits Requested Visits Authorized [id number] Pending Review Specialty Services Required 11/17/2024 11/17/2025 1 1 Encounter Details Date Type Department Care Team (Late st Contact Info) Description 11/17/2024 2:00 PM EDT Office Visit [facility] [address] [place] [address] Calista Hooper MD [address] [place] [address] Essential hypertension (Primary Dx); Type 2 diabetes mellitus with hyperglycemia, without long-term current use of insulin (CMS/HCC); Callus; Asthma, unspecified asthma severity, unspecified whether complicated, unspecified whether persistent; Polyarthralgia; Right wrist pain; Chronic midline low back pain without sciatica; Chronic pain of right knee Social History Tobacco Use Types Packs/Day Years Used Date Smoking Tobacco: Never Passive Smoke Exposure: Never Smokeless Tobacco: Former Alcohol Use Standard Drinks/Week Comments Never 0 (1 standard drink = 0.6 oz pur e alcohol) Depression Answer Date Recorded Patient Health Questionnaire-9 Score 5 11/17/2024 Patient Health Questionnaire-9 Score 5 11/17/2024 Last PHQ-9: Questionnaire Data Not on file 0 11/17/2024 Housing Stability Answer Date Recorded What is your housing situation today? I have jim hagan 11/17/[address] you li ve. Do you have problems with any of the following? None of the above 11/17/2024 Food Insecurity Answer Date Recorded Within the past 12 months, y ou worried that your food would run out before you got money to buy more: Never True 2024 Within the past 12 months,th e food you bought just didn't last and you didn't have enough money to get more: Sometimes True 11/17/2024 Transportation Answer Date Recorded In the past 12 months, has l ack of transportation kept you from medical appts, meetings, work or from getting things needed for daily living? No 11/17/2024 Utilities Answer Date Recorded In the past 12 months, has t he electric, gas, oil or water company threatened to shut off services in your home? No 11/17/2024 Depression Answer Date Recorded Patient Health Questionnaire-2 Score 1 11/17/2024 Internet Access Answer Date Recorded Internet Access Q1 Yes 11/17/2024 Internet Access Q2 Not on file 11/17/2024 Comments Unknown Sex and Gender Information Value Date Recorded Sex Assigned at Female 2022 10:14 AM EDT Legal Sex Female 10:14 AM EDT Gender Identity Female 2022 10:14 AM EDT Sexual Orientation Straight 2022 10 :14 AM EDT documented as of this encounter Last Filed Vital Signs Vital Sign Reading Time Taken Comments Blood Pressure 130/82 11/17/2024 2:07 PM EDT Pulse 79 11/17/2024 2:07 PM EDT Temperature 36.7 C (98 F) 11/17/2024 2:07 PM EDT Respiratory Rate 15 11/17/2024 2:07 PM EDT Oxygen Saturation 96% 11/17/2024 2:07 PM EDT Inhaled Oxygen Concentration - - Weight 63 kg (139 lb) 11/17/2024 2:07 PM EDT Height 152.4 cm (5') 11/17/2024 2:07 PM EDT Body Mass Index 27.15 11/17/2024 2:07 PM EDT documented in this encounter Functional Status * Over the past 2 weeks, how often have you been bothered by any of the following problems? Question Answer Date of Assessment Author Patient Health Questionnaire-2 Score 1 11/08 2:10 PM EDT Steffany Stevens [place] * Little interest or pleasure in doing things Answer Date of Assessment Author Not at all 11/17/2024 2:10 PM EDT Wade Stevens ra, [place] * Feeling down, depressed, or hopeless Answer Date of Assessment Author Several days 11/17/2024 2:10 PM EDT Wade Stevens ra, [place] * Trouble falling or staying asleep, or sleeping too much Answer Date of Assessment Author Nearly every day 11/17/2024 2:10 PM EDT Josias Stevens MA * Feeling tired or having little energy Answer Date of Assessment Author Several days 11/17/2024 2:10 PM EDT Wade Stevens ra, [place] * Poor appetite or overeating Answer Date of Assessment Author Not at all 11/17/2024 2:10 PM EDT Wade Stevens ra, [place] * Feeling bad about yourself - or that you are a failure or have let yourself or your family down Answer Date of Assessment Author Not at all 11/17/2024 2:10 PM EDT Wade Stevens ra, [place] * Trouble concentrating on things, such as reading the newspaper or watching television Answer Date of Assessment Author Not at all 11/17/2024 2:10 PM EDT Wade Stevens ra, [place] * Moving or speaking so slowly that other people could have noticed? Or the opposite - being so fidgety or restless that you have been moving around a lot more than usual. Answer Date of Assessment Author Not at all 11/17/2024 2:10 PM EDT Wade Stevens ra, [place] * Thoughts that you would be better off or hurting yourself in some way Answer Date of Assessment Author Not at all 11/17/2024 2:10 PM EDT Wade Stevens ra, [place] * Patient Health Questionnaire-9 Score Answer Date of Assessment Author 5 11/17/2024 2:10 PM EDT Wade Stevens ra, [place] * Over the last 2 weeks, how often have you been bothered by any of the following problems? Question Answer Date of Assessment Author Feeling nervous, anxious, or on edge 1 11/08 2:09 PM EDT Steffany Stevens MA Not being able to stop or co ntrol worrying 2 11/17/2024 2:09 PM EDT Steffany Stevens MA Worrying too much about diff erent things 1 11/17/2024 2:09 PM EDT Steffany Stevens MA Trouble relaxing 0 11/17/2024 2:09 PM EDT Steffany Bergman MA Being so restless that it is hard to sit still 0 11/17/2024 2:09 PM EDT Steffany Stevens MA Becoming easily annoyed or irritable 1 11/08 2:09 PM EDT Steffany Stevens MA Feeling afraid as if somethi ng awful might happen 0 11/17/2024 2:09 PM EDT Steffany Stevens MA VEDA-7 Total Score 5 11/17/2024 2:09 PM EDT Steffany Stevens MA documented as of this encounter Progress Notes * Calista Nuñez MD - 11/17/2024 2:00 PM EDT SUBJECTIVE: Carola Green is a 69 y.o. year old female who presents for Chronic Disease Management . Acute Concerns: Patient reports she continues to have polyarthralgia but pain is more on her right wrist right kneeand lower back, this problem is chronic but has been getting worse progressively there is no triggering activity or trauma Patient also complaining today of callus on her right foot that is painful when she walks it is located on her fifth toe Social History Social History Narrative Not on file Problem List[1] Asthma Depressive disorder Diabetes mellitus ([facility]/HCC) Dyslipidemia Essential hypertension Glaucoma Headache Hearing loss Joint pain Kidney disease Tremor Unilateral congenital absence of kidney Polyarthralgia Constipation Encounter for screening mammogram for malignant neoplasm of breast Systolic murmur Callus Right wrist pain Chronic midline low back pain without sciatica Family History[2] Review of Systems Constitutional: Negative. HENT: Negative. Respiratory: Negative. Cardiovascular: Negative. Musculoskeletal: Positive for arthralgias, back pain and myalgias. OBJECTIVE: Vitals: 11/17/24 1407 BP: 130/82 BP Location: Left arm Patient Position: Sitting BP Cuff Size: Adult Pulse: 79 Resp: 15 Temp: 98 ??F (36.7 ??C) TempSrc: Temporal SpO2: 96% Weight: 139 lb (63 kg) Height: 5' (1.524 m) Physical Exam Constitutional: Appearance: Normal appearance. Cardiovascular: Rate and Rhythm: Normal rate and regular rhythm. Pulmonary: Effort: Pulmonary effort is normal. Breath sounds: Normal breath sounds. Abdominal: General: Abdomen is flat. Palpations: Abdomen is soft. Neurological: Mental Status: She is alert. Follow Up: Follow up in about 3 months (around 02/16/2025) for chrnic conditions . Medications Ordered Prior to Encounter[3] Problem List Items Addressed This Visit Essential hypertension - Primary it was advised: - Aerobic exercise to reduce BP. Initial goal of 30 min walk 3-5x/week. Increase as tolerated. - low-sodium diet (goal: <2g/day) and heart healthy diet such as DASH to reduce BP and prevent ASCVD. - Home BP monitoring 1-2 x day with goal of <140/90. - Seek immediate medical attention for chest pain, palpitations, SOB, syncope, or sudden changes inmental status. - Do not change or discontinue current prescriptions without first consulting health care provider Relevant Medications losartan (Cozaar) 100 MG tablet Diabetes mellitus ([facility]) - Lab Results Component Value Date HGBA1C 7.5 (A) 11/17/2024 HGBA1C 7.6 (A) 08/12/2024 HGBA1C 8.5 (A) 04/07/2023 - Lab Results Component Value Date MICROALBUR 137.0 08/12/2024 CREATININE 0.81 08/12/2024 -Changes: I added today Jardiance 10 mg to her medications, continue with metformin 1000 mg twice daily and glipizide 5 mg daily - Diabetic eye exam: Up-to-date - Diabetic foot exam: Referral done today - Continue lifestyle modifications - Follow up: 3 months Relevant Medications metFORMIN (Glucophage) 500 MG tablet empagliflozin (Jardiance) 10 MG FREESTYLE LITE test strip Lancets misc Alcohol Swabs 70 % pads Blood Glucose Monitoring Suppl (FreeStyle [place] Lite) w/Device kit losartan (Cozaar) 100 MG tablet Other Relevant Orders POCT Glucose (Completed) POCT Hgb A1c (Completed) Referral to Podiatry Callus Podiatry referral done today Relevant Medications Alcohol Swabs 70 % pads Other Relevant Orders Referral to Podiatry Asthma Stable continue with same medications refills done today Relevant Medications albuterol (2.5 MG/3ML) 0.083% nebulizer solution albuterol (Ventolin HFA) 108 (90 Base) MCG/ACT inhaler Fluticasone-Salmeterol (Advair Diskus) 500-50 MCG/ACT aerosol powder Polyarthralgia Relevant Medications acetaminophen (Tylenol) 500 MG tablet Right wrist pain I will order x-ray today patient will be contacted with results Relevant Medications acetaminophen (Tylenol) 500 MG tablet Other Relevant Orders XR Wrist 3+ Views Right (Completed) Chronic midline low back pain without sciatica I will order x-ray today patient will be contacted with results Relevant Medications acetaminophen (Tylenol) 500 MG tablet Other Relevant Orders XR Lumbar Spine 2-3 Views (Completed) Other Visit Diagnoses Chronic pain of right knee Relevant Medications acetaminophen (Tylenol) 500 MG tablet Other Relevant Orders XR Knee 4+ Views Right (Completed) [1] Patient Active Problem List Diagnosis Asthma Depressive disorder Diabetes mellitus ([facility]) Dyslipidemia Essential hypertension Glaucoma Headache Hearing loss Joint pain Kidney disease Tremor Unilateral congenital absence of kidney Polyarthralgia Constipation Encounter for screening mammogram for malignant neoplasm of breast Systolic murmur Callus Right wrist pain Chronic midline low back pain without sciatica [2] No family history on file. [3] Current Outpatient Medications on File Prior to Visit Medication Sig Dispense Refill Alcohol Swabs (Alcohol Prep) pads 1 each 2 times daily. 100 each 2 aluminum-magnesium hydroxide-simethicone (Maalox Max) 400-400-40 MG/5ML suspension take 10 milliliter by oral route between meals and at bedtime as needed up to 3 times daily ammonium lactate (Lac-Hydrin) 12 % lotion apply to bilateral feet twice daily as needed atorvastatin (Lipitor) 40 MG tablet Take 1 tablet (40 mg) by mouth Once per day. 90 tablet 2 Blood Glucose Monitoring Suppl (Blood Glucose Monitor System) w/Device kit 1 each 2 times daily. 1 kit 0 Blood Pressure kit Blood Pressure Monitor kit Use as directed 3x/week 1 kit 0 Blood Pressure Monitoring (Blood Pressure Cuff) misc 1 each in the morning. 1 each 0 buPROPion SR (Wellbutrin SR) 150 MG 12 hr tablet Take 1 tablet (150 mg) by mouth in the morning. 30tablet 2 cetirizine (ZyrTEC) 10 MG tablet Take 1 tablet by mouth in the morning. cholecalciferol (Vitamin D-3) 50 MCG (2000 UT) tablet Take 2,000 Units by mouth in the morning. 30 tablet 2 cyanocobalamin (Vitamin B-12) 1000 MCG tablet Take 1 tablet by mouth in the morning. Diclofenac Sodium (Voltaren) 1 % gel Apply 2 g topically every 6 (six) hours. docusate sodium (Colace) 100 MG capsule take 1 Capsule by oral route 2 times every day as needed for constipation dorzolamide-timolol (Cosopt) 22.3-6.8 MG/ML ophthalmic solution Administer 1 drop into affected eye(s) every 12 (twelve) hours. 10 mL 0 fluticasone (Flonase) 50 MCG/ACT nasal spray Administer 1 spray into affected nostril(s) every 12 (twelve) hours. glipiZIDE (Glucotrol) 5 MG tablet take 1 tablet (5MG) by oral route every day with breakfast 90 tablet 2 glucose blood (FREESTYLE LITE) test strip Use 1 strip twice a day 100 each 2 Lancets misc 1 each 2 times daily. 100 each 2 latanoprost (Xalatan) 0.005 % ophthalmic solution instill 1 drop by ophthalmic route every evening into both eyes 10 mL 0 lidocaine (Lidoderm) 5 % patch Place 1 patch on the skin at bed time. lidocaine (Lidoderm) 5 % patch Apply 1 patch topically in the morning. Remove & discard patch within 12 hours or as directed by MD. 30 patch 2 montelukast (Singulair) 10 MG tablet Take 1 tablet (10 mg) by mouth in the morning. 30 tablet 2 omega-3 1000 MG capsule capsule take one capsule 2 times a day 60 capsule 2 primidone (Mysoline) 50 MG tablet Take 1 tablet (50 mg) by mouth every 12 (twelve) hours. 30 tablet2 sertraline (Zoloft) 50 MG tablet Take 1 tablet (50 mg) by mouth in the morning. 30 tablet 2 Spacer/Aero-Holding Chambers device traZODone (Desyrel) 50 MG tablet Take 1 tablet (50 mg) by mouth at bedtime. 30 tablet 2 zoster vaccine-recombinant adjuvanted (Shingrix) 50 MCG/0.5ML vaccine Inject 0.5 mL into the shoulder, thigh, or buttocks. [DISCONTINUED] acetaminophen (Tylenol) 500 MG tablet take 1 Tablet by oral route every 8 hours as needed for pain 30 tablet 2 [DISCONTINUED] albuterol (2.5 MG/3ML) 0.083% nebulizer solution Take 3 mL by nebulization every 6 (six) hours. 75 mL 1 [DISCONTINUED] albuterol (Ventolin HFA) 108 (90 Base) MCG/ACT inhaler Inhale 2 puffs every 4 (four)hours if needed for wheezing or shortness of breath. 18 g 2 [DISCONTINUED] Fluticasone-Salmeterol (Advair Diskus) 500-50 MCG/ACT aerosol powder Inhale 1 puff every 12 (twelve) hours. 1 each 2 [DISCONTINUED] losartan (Cozaar) 100 MG tablet Take 1 tablet (100 mg) by mouth Once per day. 90 tablet 2 [DISCONTINUED] metFORMIN (Glucophage) 500 MG tablet 2 tablet by mouth twice daily with meals 180 tablet 2 No current facility-administered medications on file prior to visit. documented in this encounter Miscellaneous Notes * Assessment & Plan Note - Calista Nuñez MD - 11/17/2024 4:31 PM EDT Associated Problem(s): Callus Podiatry referral done today * Assessment & Plan Note - Calista Nuñez MD - 11/17/2024 4:31 PM EDT Associated Problem(s): Asthma Stable continue with same medications refills done today * Assessment & Plan Note - Calista Nuñez MD - 11/17/2024 4:31 PM EDT Associated Problem(s): Right wrist pain I will order x-ray today patient will be contacted with results * Assessment & Plan Note - Calista Nuñez MD - 11/17/2024 4:31 PM EDT Associated Problem(s): Chronic midline low back pain without sciatica I will order x-ray today patient will be contacted with results * Assessment & Plan Note - Calista Nuñez MD - 11/17/2024 4:31 PM EDT Associated Problem(s): Diabetes mellitus ([facility]) - Lab Results Component Value Date HGBA1C 7.5 (A) 11/17/2024 HGBA1C 7.6 (A) 08/12/2024 HGBA1C 8.5 (A) 04/07/2023 - Lab Results Component Value Date MICROALBUR 137.0 08/12/2024 CREATININE 0.81 08/12/2024 -Changes: I added today Jardiance 10 mg to her medications, continue with metformin 1000 mg twice daily and glipizide 5 mg daily - Diabetic eye exam: Up-to-date - Diabetic foot exam: Referral done today - Continue lifestyle modifications - Follow up: 3 months * Assessment & Plan Note - Calista Nuñez MD - 11/17/2024 4:30 PM EDT Associated Problem(s): Essential hypertension it was advised: - Aerobic exercise to reduce BP. Initial goal of 30 min walk 3-5x/week. Increase as tolerated. - low-sodium diet (goal: <2g/day) and heart healthy diet such as DASH to reduce BP and prevent ASCVD. - Home BP monitoring 1-2 x day with goal of <140/90. - Seek immediate medical attention for chest pain, palpitations, SOB, syncope, or sudden changes inmental status. - Do not change or discontinue current prescriptions without first consulting health care provider documented in this encounter Plan of Treatment Upcoming Encounters Date Type Department Care Team (Late st Contact Info) Description 12/08/2024 9:45 AM EDT Office Visit [facility] [address] [place] [address] Chandrakant Bradshawio [address] [place] [address] Scheduled Referrals Name Type Priority Associated Diagnoses Orde r Schedule Referral to Podiatry Outpatient Referral Routine Type 2 diabetes mellitus with hyperglycemia, without long-term current use of insulin ([facility]) Callus Expected: 11/17/2024 (Approximate), Expires: 11/17/2025 documented as of this encounter Procedures Procedure Name Priority Date/Time Associated Diagnosis Comments XR LUMBAR SPINE 2-3 VIEWS Routine 11/17/2024 3:57 PM EDT Chronic midline low back pain without sciatica XR KNEE 4+ VIEWS RIGHT Routine 11/17/2024 3:33 PM EDT Chronic pain of right knee XR WRIST 3+ VIEWS RIGHT Routine 11/17/2024 3:26 PM EDT Right wrist pain POCT GLYCATED HEMOGLOBIN, TOTAL Routine 11/17/2024 2:29 PM EDT Type 2 diabetes mellitus with hyperglycemia, without long-term current use of insulin ([facility]) POCT GLUCOSE Routine 11/17/2024 2:29 PM EDT Type 2 diabetes mellitus with hyperglycemia, without long-term current use of insulin ([facility]) documented in this encounter Results * XR Lumbar Spine 2-3 Views (11/17/2024 3:57 PM EDT) Anatomical Region Laterality Modality Spine, L-spine Radiographic Yolanda ging 11/17/2024 3:57 PM EDT Narrative 11/17/2024 4:16 [place] [address] XRay Report Signed Patient: Carola Green MR#: [id number] : 1955 Acct:[id number] Age/Sex: 69 / F ADM Date: 11/17/24 Loc: .[facility] Attending Dr: Calista Nuñez MD Ordering Physician: Calista Hooper MD Date of Service: 11/17/24 Procedure(s): XR lumbar spine 2-3V Accession Number(s): [id number] cc: Calista Hooper MD Reason for Exam: pain EXAMINATION: XR LUMBOSACRAL SPINE CLINICAL INFORMATION: pain COMPARISON: None available. TECHNIQUE: Three views of the lumbosacral spine. FINDINGS: There are 5 nonrib-bearing lumbar segments. There is mild convex right curvature of the lumbar spine. Large anterior osteophytes, some of which are bridging, are noted in the lower thoracic spine. Moderate anterior aspects are present in the mid to upper lumbar spine. There is mild disc space narrowing throughout the lumbar spine, greatest at L3-4. No other abnormalities are noted. XR/XR lumbar spine 2-3V IMPRESSION: Multilevel degenerative change, likely related to diffuse idiopathic skeletal hyperostosis (DISH) Electronically signed by: Ramirez Freedman MD 11/17/2024 04:13 PM EDT RP Dictated By: Ramirez Freedman MD Signed By: <Electronically signed by Ramirez Freedman MD in OV> 11/17/24 1613 DD/ 1557 TD/TT: 11/17/24 1558 Director Of Product Marketing: Procedure Note Donotuseinterpreter, Image - 11/17/[address] [address] XRay Report Signed Patient: Carola GreenMR#: [id number] : 5Acct:[id number] Age/Sex: 69 / FADM Date: 11/17/24 [facility]: Calista Nuñez MD Ordering Physician: Calista Hooper MD Date of Service: 11/17/24 Procedure(s): XR lumbar spine 2-3V Accession Number(s): [id number] cc: Calista Hooper MD Reason for Exam: pain EXAMINATION: XR LUMBOSACRAL SPINE CLINICAL INFORMATION: pain COMPARISON: None available. TECHNIQUE: Three views of the lumbosacral spine. FINDINGS: There are 5 nonrib-bearing lumbar segments. There is mild convex right curvature of the lumbar spine. Large anterior osteophytes, some of which are bridging, are noted in the lower thoracic spine. Moderate anterior aspects are present in the mid to upper lumbar spine. There is mild disc space narrowing throughout the lumbar spine, greatest at L3-4. No other abnormalities are noted. XR/XR lumbar spine 2-3V IMPRESSION: Multilevel degenerative change, likely related to diffuse idiopathic skeletal hyperostosis (DISH) Electronically signed by: Ramirez Freedman MD 11/17/2024 04:13 PM EDT RP Dictated By: Ramirez Freedman MD Signed By: <Electronically signed by Ramirez Freedman MD in OV> 11/17/24 1613 DD/ 1557 TD/TT: 11/17/24 1558 Director Of Product Marketing: us Calista Nuñez MD IMG XR PROCEDURES Fin al Result * XR Knee 4+ Views Right (11/17/2024 3:33 PM EDT) Anatomical Region Laterality Modality Lower Extremities, Knee Right Radiogra phic Imaging 11/17/2024 3:33 PM EDT Narrative 11/17/2024 4:17 PM EDT [address] [address] XRay Report Signed Patient: Carola Green MR#: [id number] : 1955 Acct:[id number] Age/Sex: 69 / F ADM Date: 11/17/24 Loc: [facility] Attending Dr: Calista Nuñez MD Ordering Physician: Calista Hooper MD Date of Service: 11/17/24 Procedure(s): XR knee RT 4V Accession Number(s): [id number] cc: Calista Hooper MD Reason for Exam: pain EXAMINATION: XR KNEE, RIGHT CLINICAL INFORMATION: pain COMPARISON: None available. TECHNIQUE: Four views of the right knee. FINDINGS: There is moderate narrowing of the medial joint space and mild narrowing of the lateral. There are tricompartmental marginal osteophytes. There is a joint effusion. There are small chronic soft tissue ossifications lateral to the knee joint. No other abnormalities are evident. XR/XR knee RT 4V IMPRESSION: Moderate osteoarthritis and a joint effusion Electronically signed by: Ramirez Freedman MD 11/17/2024 04:14 PM EDT RP Dictated By: Ramirez Freedmna MD Signed By: <Electronically signed by Ramirez Freedman MD in OV> 11/17/24 1614 DD/ 1533 TD/TT: 11/17/24 1558 Director Of Product Marketing: Procedure Note Donotuseinterpreter, Image - 11/17/[address] [address] XRay Report Signed Patient: Carola GreenMR#: [id number] : 5Acct:[id number] Age/Sex: 69 / FADM Date: 11/17/24 [facility]: Calista Nuñez MD Ordering Physician: Calista Hooper MD Date of Service: 11/17/24 Procedure(s): XR knee RT 4V Accession Number(s): [id number] cc: Calista Hooper MD Reason for Exam: pain EXAMINATION: XR KNEE, RIGHT CLINICAL INFORMATION: pain COMPARISON: None available. TECHNIQUE: Four views of the right knee. FINDINGS: There is moderate narrowing of the medial joint space and mild narrowing of the lateral. There are tricompartmental marginal osteophytes. There is a joint effusion. There are small chronic soft tissue ossifications lateral to the knee joint. No other abnormalities are evident. XR/XR knee RT 4V IMPRESSION: Moderate osteoarthritis and a joint effusion Electronically signed by: Ramirez Freedman MD 11/17/2024 04:14 PM EDT Dictated By: Ramirez Freedman MD Signed By: <Electronically signed by Ramirez Freedman MD in OV> 11/17/24 1614 DD/ 1533 TD/TT: 11/17/24 1558 Director Of Product Marketing: us Calista Nuñez MD IMG XR PROCEDURES Fin al Result * XR Wrist 3+ Views Right (11/17/2024 3:26 PM EDT) Anatomical Region Laterality Modality Upper Extremities, Wrist [facility] 11/17/2024 3:26 PM EDT Narrative 11/17/2024 4:14 PM EDT [facility] [address] [place] [address] XRay Report Signed Patient: Carola Green MR#: [id number] : 1955 Acct:[id number] Age/Sex: 69 / F ADM Date: 11/17/24 [facility] Attending Dr: Calista Nuñez MD Ordering Physician: Calista Hooper MD Date of Service: 11/17/24 Procedure(s): XR wrist RT min 3V Accession Number(s): [id number] cc: Calista Hooper MD Reason for Exam: pain EXAMINATION: XR WRIST, RIGHT CLINICAL INFORMATION: pain COMPARISON: None available. TECHNIQUE: PA, lateral, oblique, and scaphoid views of the right wrist. 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 There is moderate narrowing with sclerosis and osteophytes involving the first carpal metacarpal joint and scaphoid trapezial trapezoid joint. Probable degenerative cystic changes noted in the capitate, ulnar side of the lunate, and triquetrum.. There is no joint diastases. Lucency traversing scaphoid is probably projectional in nature. XR/XR wrist RT min 3V IMPRESSION: First CMC and STT joint osteoarthritis. Scaphoid lucency is probably projectional in nature. If there is clinical concern for scaphoid fracture, follow-up x-ray in 7-10 days. Electronically signed by: Ramirez Freedman MD 11/17/2024 04:12 PM EDT Dictated By: Ramirez Freedman MD Signed By: <Electronically signed by Ramirez Freedman MD in OV> 11/17/24 1612 DD/ 1526 TD/TT: 11/17/24 1558 Director Of Product Marketing: Procedure Note Donotuseinterpreter, Image - 11/17/[address] [address] XRay Report Signed Patient: Carola GreenMR#: [id number] : 5Acct:[id number] Age/Sex: 69 / FADM Date: 11/17/24 [facility] Attending Dr: Calista Nuñez MD Ordering Physician: Calista Hooper MD Date of Service: 11/17/24 Procedure(s): XR wrist RT min 3V Accession Number(s): [id number] cc: Calista Hooper MD Reason for Exam: pain EXAMINATION: XR WRIST, RIGHT CLINICAL INFORMATION: pain COMPARISON: None available. TECHNIQUE: PA, lateral, oblique, and scaphoid views of the right wrist. 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 There is moderate narrowing with sclerosis and osteophytes involving the first carpal metacarpal joint and scaphoid trapezial trapezoid joint. Probable degenerative cystic changes noted in the capitate, ulnar side of the lunate, and triquetrum.. There is no joint diastases. Lucency traversing scaphoid is probably projectional in nature. XR/XR wrist RT min 3V IMPRESSION: First CMC and STT joint osteoarthritis. Scaphoid lucency is probably projectional in nature. If there is clinical concern for scaphoid fracture, follow-up x-ray in 7-10 days. Electronically signed by: Ramirez Freedman MD 11/17/2024 04:12 PM EDT Dictated By: Ramirez Freedman MD Signed By: <Electronically signed by Ramirez Freedman MD in OV> 11/17/24 1612 DD/ 1526 TD/TT: 11/17/24 1558 Director Of Product Marketing: us Calista Nuñez MD IMG XR PROCEDURES Fin al Result * (ABNORMAL) POCT Hgb A1c (11/17/2024 2:29 PM EDT) Hemoglobin A1C 7.5(A) 4.0 - 5.7 % QC Media Lot # [id number] Lot# Expiration Date 41,627 Blood 11/17/2024 2:29 PM EDT Calista Nuñez MD POINT OF CARE TEST EN TER/EDIT ORDERABLES Final Result * (ABNORMAL) POCT Glucose (11/17/2024 2:29 PM EDT) Glucose Blood, POC 229(A) 60 - 200 mg/dL QC Media Lot # [id number] Lot# Expiration Date 113,025 Blood Capillary blood specimen / Unknown 11/17/2024 2:29 PM EDT Calista Nuñez MD POINT OF CARE TEST EN TER/EDIT ORDERABLES Final Result documented in this encounter Visit Diagnoses Diagnosis Essential hypertension- Primary Unspecified essential hypertension Type 2 diabetes mellitus with hyperglycemia, without long-term current use of insulin ([facility]) Callus Corns and callosities Asthma, unspecified asthma severity, unspecified whether complicated, unspecified whether persistent Polyarthralgia Pain in joint, multiple sites Right wrist pain Pain in joint, forearm Chronic midline low back pain without sciatica Chronic pain of right knee documented in this encounter Additional Health Concerns Assessment Noted Time PHQ-9 Depression Total Score: 5 11/18/19 25 2:10 PM EDT documented as of this encounter Care Teams Commercial Electrician Relationship Specialty Start Date End Date Calista Hooper MD [address] [place] [address] PCP - General Internal Medicine 02/11/23 documented as of this encounter
--- OUTSIDE RECORDS SUMMARY | 2024-11-17 18:05 | XMS_ITS | Clinical Summary ---
Author Organization [facility] ity Address [address] [place] [address] Care Team Providers Care Fast Food Crew Member Name Role Phone Unavailable Primary Care Provider [...] 2005 Zoster Vaccines (1 of 2) 2005 Depression Screening 03/10/2024 COVID-19 Vaccine (1 - 2023-2 5 season) 2024 Influenza Vaccine (#1) 2024 RSV Immunization Adult [...]
--- OUTSIDE RECORDS SUMMARY | 2024-11-17 18:06 | XMS_ITS | Encounter Summary ---
Author Organization [employer] Address [address] [place] [address] Care Team Providers Care Geothermal System Installer Name Role Phone Calista Hooper MD Primary Care Provide r Reason for Visit * Reason Onset Date Comments Chart prep 11/16/2024 Encounter Details Date Type Department Care Team ([facility] st Contact Info) Description 11/16/2024 Telephone [facility] [address] [place] [address] Calista Hooper MD [address] [place] [address] Chart prep Social History Tobacco Use Types Packs/Day Years [...] your housing situation today? I have jim bentley 11/17/[address] you li [...] encounter Miscellaneous Notes * Telephone Encounter - Faye Roche MA - 11/16/2024 1:59 PM EDT Chart Prep Labs: done Images: done Referrals: complete Vaccines due: Covid, Flu, RSV, Zoster, and DTAP Screenings: colonoscopy, eye exam, and foot exam Overdue care gaps: A1c, Glucose, SBIRT, SDOH, PHQ-9, and VEDA-7 documented in this encounter Plan of Treatment Upcoming Encounters Date Type Department Care Team (Late st Contact Info) Description 12/08/2024 9:45 AM EDT Office Visit [facility] [address] [place] [address] Quincy Bradshaw [address] [place] [address] documented as of this encounter Visit Diagnoses Not on filedocumented in this encounter Care Teams Geothermal System Installer Relationship Specialty Start Date End Date Calista Hooper MD [address] [place] [address] PCP - General Internal Medicine 02/11/23 documented as of this encounter
--- OUTSIDE RECORDS SUMMARY | 2024-11-17 18:06 | XMS_ITS | Clinical Summary ---
Author Organization [employer] Address [address] [facility] [address] [place] [address] Care Team Providers Care Credit Counselor Name Role Phone Calista Hooper MD Primary [...] evening into both eyes 10 mL Active buPROPion SR (Wellbutrin SR) 150 MG 12 hr tabletIndicatio ns:Depressive disorder Take 1 tablet (150 mg) by mouth in the morning. 30 tablet Active cholecalciferol (Vitamin D-3) 50 MCG (2000 UT) tabletIndicatio ns:Type 2 diabetes mellitus with hyperglycemia, without long-term current use of insulin (CMS/HCC) Take 2,000 Units by mouth in the morning. 30 tablet 2 Active glucose blood (FREESTYLE LITE) test stripIndication [...] mouth every 12 (twelve) hours. 30 tablet Active sertraline (Zoloft) 50 MG tabletIndicatio ns:Depressive disorder Take 1 tablet (50 mg) by mouth in the morning. 30 tablet 2 024 Active traZODone (Desyrel) 50 MG tabletIndicatio ns:Depressive disorder Take 1 tablet (50 mg) by mouth at bedtime. 30 tablet 2 024 Active Blood Pressure Monitor kitIndications: Essential hypertension Use as directed 3x/week 1 kit 024 Active Alcohol Swabs (Alcohol Prep) padsIndications :Type 2 diabetes mellitus with hyperglycemia, without long-term current use of insulin (CMS/HCC) 1 each 2 times daily. 100 each 2 024 Active Blood Glucose Monitoring Suppl (Blood Glucose Monitor System) w/Device kitIndications: Type 2 diabetes mellitus with hyperglycemia, without long-term current use of insulin (CMS/HCC) 1 each 2 times daily. 1 kit 024 Active Lancets miscIndications :Type 2 diabetes mellitus with hyperglycemia, without long-term current use of insulin (CMS/HCC) 1 each 2 times daily. 100 each 2 024 Active lidocaine (Lidoderm) 5 % patchIndication s:Polyarthralgi a Apply 1 patch topically in the morning. Remove & discard patch within 12 hours or as directed by MD. 30 patch 2 Active Blood Pressure Monitoring (Blood Pressure Cuff) miscIndications :Essential hypertension 1 each in the morning. 1 each 025 Active atorvastatin (Lipitor) 40 MG tabletIndicatio ns:Essential hypertension Take 1 tablet (40 mg) by mouth Once per day. 90 tablet 2 025 Active glipiZIDE (Glucotrol) 5 MG tabletIndicatio ns:Type 2 diabetes mellitus with hyperglycemia, without long-term current use of insulin (CMS/HCC) take 1 tablet (5MG) by oral route every day with breakfast 90 tablet 2 025 Active metFORMIN (Glucophage) 500 MG tabletIndicatio ns:Type 2 diabetes mellitus with hyperglycemia, without long-term current use of insulin (CMS/HCC) 2 tablet by mouth twice daily with meals 180 tablet 2 025 Active empagliflozin (Jardiance) 10 MGIndications:T ype 2 diabetes mellitus with hyperglycemia, without long-term current use of insulin (CMS/HCC) Take 1 tablet (10 mg) by mouth Once per day. 30 tablet 11 025 2025 Active albuterol (2.5 MG/3ML) 0.083% nebulizer solutionIndicat ions:Asthma, unspecified asthma severity, unspecified whether complicated, unspecified whether persistent Take 3 mL by nebulization every 6 (six) hours. 75 mL 1 Active FREESTYLE LITE test stripIndication s:Type 2 diabetes mellitus with hyperglycemia, without long-term current use of insulin ([facility]) Use to test blood sugar 1 times daily 100 each 12 025 2025 Active Lancets miscIndications :Type 2 diabetes mellitus with hyperglycemia, without long-term current use of insulin ([facility]) Use to test blood sugar 1 times daily 100 each Active Alcohol Swabs 70 % padsIndications :Type 2 diabetes mellitus with hyperglycemia, without long-term current use of insulin ([facility]) Use to test blood sugar 1 times daily 100 each Active Blood Glucose Monitoring Suppl (FreeStyle [place] Lite) w/Device kitIndications: Type 2 diabetes mellitus with hyperglycemia, without long-term current use of insulin ([facility]) Use to test blood sugar 1 times daily 1 kit Active acetaminophen (Tylenol) 500 MG tabletIndicatio ns:Polyarthralg ia take 1 Tablet by oral route every 8 hours as needed for pain 30 tablet 2 Active albuterol (Ventolin HFA) 108 (90 Base) MCG/ACT inhalerIndicati ons:Asthma, unspecified asthma severity, unspecified whether complicated, unspecified whether persistent Inhale 2 puffs every 4 (four) hours if needed for wheezing or shortness of breath. 18 g 2 Active Fluticasone-Layo meterol (Advair Diskus) 500-50 MCG/ACT aerosol powderIndicatio ns:Asthma, unspecified asthma severity, unspecified whether complicated, unspecified whether persistent Inhale 1 puff every 12 (twelve) hours. 1 each 2 Active losartan (Cozaar) 100 MG tabletIndicatio ns:Essential hypertension Take 1 tablet (100 mg) by mouth Once per day. 90 tablet 2 09/10/2 025 Active acetaminophen (Tylenol) 500 MG tabletIndicatio ns:Polyarthralg ia take 1 Tablet by oral route every 8 hours as needed for pain 30 tablet 2 2024 Discontinued(R eorder (will not trigger notification to Pharmacy)) albuterol (2.5 MG/3ML) 0.083% nebulizer solutionIndicat ions:Asthma, unspecified asthma severity, unspecified whether complicated, unspecified whether persistent Take 3 mL by nebulization every 6 (six) hours. 75 mL 1 2024 Discontinued(R eorder (will not trigger notification to Pharmacy)) albuterol (Ventolin HFA) 108 (90 Base) MCG/ACT inhalerIndicati ons:Asthma, unspecified asthma severity, unspecified whether complicated, unspecified whether persistent Inhale 2 puffs every 4 (four) hours if needed for wheezing or shortness of breath. 18 g 2 2024 Discontinued(R eorder (will not trigger notification to Pharmacy)) Fluticasone-Layo meterol (Advair Diskus) 500-50 MCG/ACT aerosol powderIndicatio ns:Asthma, unspecified asthma severity, unspecified whether complicated, unspecified whether persistent Inhale 1 puff every 12 (twelve) hours. 1 each 2 2024 Discontinued(R eorder (will not trigger notification to Pharmacy)) metFORMIN (Glucophage) 500 MG tabletIndicatio ns:Type 2 diabetes mellitus with hyperglycemia, without long-term current use of insulin ([facility]) 2 tablet by mouth twice daily with meals 180 tablet 2 2024 Discontinued losartan (Cozaar) 100 MG tabletIndicatio ns:Essential hypertension Take 1 tablet (100 mg) by mouth Once per day. 90 tablet 2 2024 Discontinued(R eorder (will not trigger notification to Pharmacy)) Active Problems Problem Noted Date Diagnosed Date Callus 11/17/2024 Assessment & Plan (11/17/2024 4:31 PM EDT): Podiatry referral done today Right wrist pain 11/17/2024 Assessment & Plan (11/17/2024 4:31 PM EDT): I will order x-ray today patient will be contacted with results Chronic midline low back pain without sciatica 0 11/17/2024 Assessment & Plan (11/17/2024 4:31 PM EDT): I will order x-ray today patient will be contacted with results Encounter for screening mamm ogram for malignant neoplasm of breast 08/12/2024 Systolic murmur 08/12/2024 Assessment & Plan (08/12/2024 4:43 PM EDT): Echocardiogram ordered Polyarthralgia 04/07/2023 Constipation 04/07/2023 Headache 01/11/2014 Kidney disease 01/11/2014 Tremor 01/11/2014 Asthma 09/21/2012 Assessment & Plan (11/17/2024 4:31 PM EDT): Stable continue with same medications refills done today Assessment & Plan (04/07/2023 4:46 PM EST): Patient educated to avoid asthma triggers Dyslipidemia 09/21/2012 Unilateral congenital absence of kidney 09/22/19 13 Joint pain 01/21/2012 Depressive disorder 11/18/2011 Glaucoma 11/18/2011 Diabetes mellitus 09/05/2011 Assessment & Plan (11/17/2024 4:31 PM EDT): - Lab Results Component Value Date HGBA1C [...] Follow up: 3 months Assessment & Plan (08/12/2024 4:45 PM EDT): [...] medications Essential hypertension 09/05/2011 Assessment & Plan (11/17/2024 4:30 PM EDT): it was advised: - Aerobic exercise to [...] consulting health care provider Assessment & Plan (08/12/2024 4:43 PM EDT): [...] Encounters Date Type Department Care Team Description 11/17/2024 2:00 PM EDT Office Visit [address] [address] Calista Hooper MD Essential hypertension (Primary Dx); Type 2 diabetes mellitus with hyperglycemia, without long-term current use of insulin ([facility]); Callus; Asthma, unspecified asthma severity, unspecified whether complicated, unspecified whether persistent; Polyarthralgia; Right wrist pain; Chronic midline low back pain without sciatica; Chronic pain of right knee 11/17/2024 Travel 11/16/[address] [address] Calista Hooper MD Chart prep 11/09/2024 Patient Outreach [address] [address] Calista Hooper MD Pre-visit Planning ((Unable to reach for PVP screening, LVM) to be completed in office ) 10/27/2024 Telephone [facility] [address] [place] [address] Ryanne Mayberry 10/12/2024 1:45 PM EDT Office Visit [facility] [address] [place] [address] Quincy Bradshaw 08/17/2024 Telephone [facility] [address], [place] [phone] Calista Hooper MD SEP RECALL from Last 3 Months Immunizations Immunization Administration [...] Mass Index 27.15 11/17/2024 2:07 PM EDT Plan of Treatment Upcoming Encounters Date Type Department Care Team (Late st Contact Info) Description 12/08/2024 9:45 AM EDT Office Visit [facility] [address] [place] [address] Quincy Bradshaw [address] [place] [address] Health Maintenance Due Date Last Done Comments CT Colonography 1955 Colonoscopy 1955 Colorectal Cancer Screening 1955 FIT DNA/Cologuard 1955 FIT 1955 FOBT 1955 Sigmoidoscopy 1955 Diabetes: Foot Exam 1965 Eye Exam 1965 Dental Prophylaxis 04/09/2009 10/06/2008 RSV Patients and Patients Aged 60 years or older (1 - Risk 60-74 years 1-dose series) 2015 Zoster Vaccines (2 of 3) 01/30/2016 12/05/2015 Dental X-Ray: Full Mouth 04/06/2018 04/05/2015 DTaP/Tdap/Td Vaccines (2 - Td or Tdap) 11/17/2021 11/18/2011, 10/10/1998 COVID-19 Vaccine (3 - season) 2024 07/06/2020, 06/15/2020 Influenza Vaccine (#1) 2024 , 03/04/2019, 12/05/2015, Additional history exists Dental Oral Exam 01/24/2025 07/23/2024, 10/2018, 04/04/2017, Additional history exists Diabetes: Hemoglobin A1C 02/16/2025 025, 08/12/2024, 04/07/2023, Additional history exists Dental X-Ray: Bitewings 06/11/2025 06/11/19 25, 04/04/2017, 04/05/2015, Additional history exists Diabetes: Urine Protein Screening 08/12/2025 08/12/2024, 04/07/2023, 06/07/2021 Lipid Panel 08/12/2025 08/12/2024, 06/07/2021 Alcohol/Substance Use Screening 11/17/2025 11/17/2024 Depression Screening 11/17/2025 11/17/2024, 11/18/19 SDOH Screening 11/17/2025 11/17/2024 Tobacco Screening 11/17/2025 11/17/2024 Mammogram 10/28/2026 10/28/2024, 08/09, 08/27/2021 Hepatitis C Screening Completed 06/07/2021 Pneumococcal Vaccine: [...] sciatica XR KNEE 4+ VIEWS RIGHT Routine 3:33 PM EDT Chronic pain of right knee XR WRIST 3+ VIEWS RIGHT Routine 11/17/2024 3:26 PM EDT Right wrist pain POCT GLYCATED HEMOGLOBIN, TOTAL Routine 11/17/2024 2:29 PM EDT Type 2 diabetes mellitus with hyperglycemia, without long-term current use of insulin (CMS/HCC) POCT GLUCOSE Routine 11/17/2024 2:29 PM EDT Type 2 diabetes mellitus with hyperglycemia, without long-term current use of insulin (CMS/HCC) BI MAMMOGRAM SCREENING TOMOSYNTHESIS BILATERAL Routine 10/28/2024 1:45 PM EDT Encounter for screening mammogram for malignant neoplasm of breast LIMITED ORAL EVALUATION - PROBLEM FOCUSED Routine 10/12/2024 1:45 PM EDT ALBUMIN, RANDOM URINE W/CREATININE Routine 08/12/2024 3:11 PM EDT Type 2 diabetes mellitus with hyperglycemia, without long-term current use of insulin (CMS/HCC) LIPID PANEL, STANDARD Routine 08/12/2024 3:11 PM EDT Type 2 diabetes mellitus with hyperglycemia, without long-term current use of insulin (CMS/HCC) PERIODIC ORAL EVALUATION - ESTABLISHED PATIENT Routine 07/23/2024 10:00 AM EDT BITEWING - SINGLE RADIOGRAPHIC IMAGE Routine 06/10/2024 1:00 PM EDT ZZZ HISTORICAL HEPATITIS C AB W/REFL TO HCV RNA, QN, PCR Routine 06/07/2021 2:30 PM EDT INTRAORAL - COMPLETE SERIES OF RADIOGRAPHIC IMAGES Routine 04/05/2015 12:00 AM EST PROPHYLAXIS - ADULT Routine 10/06/2008 1 2:00 AM EDT from Last 3 Months or Most Recently Relevant to Health Maintenance Results * XR Lumbar Spine 2-3 Views (11/17/2024 3:57 PM EDT) Anatomical Region Laterality Modality Spine, L-spine Radiographic Yolanda ging 11/17/2024 3:57 PM EDT Narrative 11/17/2024 4:16 PM EDT [address] [address] XRay Report Signed Patient: Carola Green MR#: [id number] : 1955 Acct:[id number] Age/Sex: 69 / F ADM Date: 11/17/24 Loc: HO.HHCX Attending Dr: Calista Nuñez MD Ordering Physician: Calista Hooper MD Date of Service: 11/17/24 Procedure(s): XR lumbar spine 2-3V Accession Number(s): [id number] cc: Calista Hooper MD Reason for Exam: [...] OV> 11/17/24 1613 DD/ 1557 TD/TT: 11/17/24 155 Marzipan Maker: Procedure Note Donotuseinterpreter, Image - 11/17/[address] [address] XRay Report Signed Patient: Cain Green#: [id number] : 5Acct:[id number] Age/Sex: 69 / FADM Date: 11/17/24 Loc: HO.HHCX Attending Dr: Calista Nuñez MD Ordering Physician: Calista Hooper MD Date of Service: 11/17/24 Procedure(s): XR lumbar spine 2-3V Accession Number(s): [id number] cc: Calista Hooper MD Reason for Exam: [...] in OV> 11/17/24 1613 DD/ 1557 TD/TT: 11/17/241557 Marzipan Maker: us Calista Nuñez MD IMG XR PROCEDURES Fin al Result * XR Knee 4+ Views Right (11/17/2024 3:33 PM EDT) Anatomical Region Laterality Modality Lower Extremities, Knee Right Radiogra phic Imaging 11/17/2024 3:33 PM EDT Narrative 11/17/2024 4:17 PM EDT [address] [address] XRay Report Signed Patient: Carola Green MR#: [id number] : 1955 Acct:[id number] Age/Sex: 69 / F ADM Date: 11/17/24 Loc: .HHCX Attending Dr: Calista Nuñez MD Ordering Physician: Calista Hooper MD Date of Service: 11/17/24 Procedure(s): XR knee RT 4V Accession Number(s): [id number] cc: Calista Hooper MD Reason for Exam: [...] 11/17/24 1614 DD/ 1533 TD/TT: 11/17/24 1558 Marzipan Maker: Procedure Note Donotuseinterpreter, Image - 11/17/[address] [address] XRay Report Signed Patient: Carola GreenMR#: [id number] : 5Acct:[id number] Age/Sex: 69 / FADM Date: 11/17/24 Loc: YAO Attending Dr: Calista Nuñez MD Ordering Physician: Calista Hooper MD Date of Service: 11/17/24 Procedure(s): XR knee RT 4V Accession Number(s): [id number] cc: Calista Hooper MD Reason for Exam: [...] 11/17/24 1614 DD/ 1533 TD/TT: 11/17/24 1558 Marzipan Maker: us Calista Nuñez MD IMG XR PROCEDURES Fin al Result * XR Wrist 3+ Views Right (11/17/2024 3:26 PM EDT) Anatomical Region Laterality Modality Upper Extremities, Wrist Right Radiogr aphic Imaging 11/17/2024 3:26 PM EDT Narrative 11/17/2024 4:14 PM EDT [address] [address] XRay Report Signed Patient: Carola Green MR#: [id number] : 1955 Acct:[id number] Age/Sex: 69 / F ADM Date: 11/17/24 Loc: YAO Attending Dr: Calista Nuñez MD Ordering Physician: Calista Hooper MD Date of Service: 11/17/24 Procedure(s): XR wrist RT min 3V Accession Number(s): [id number] cc: Calista Hooper MD Reason for Exam: [...] 11/17/24 1612 DD/ 1526 TD/TT: 11/17/24 1558 Marzipan Maker: Procedure Note Donotuseinterpreter, Image - 11/17/[address] [address] XRay Report Signed Patient: Carola GreenMR#: [id number] : 5Acct:[id number] Age/Sex: 69 / FADM Date: 11/17/24 Loc: HO.HHCX Attending Dr: Calista Nuñez MD Ordering Physician: Calista Hooper MD Date of Service: 11/17/24 Procedure(s): XR wrist RT min 3V Accession Number(s): [id number] cc: Calista Hooper MD Reason for Exam: [...] 11/17/24 1612 DD/ 1526 TD/TT: 11/17/24 1558 Marzipan Maker: Calista Nuñez MD IMG XR PROCEDURES Fin al Result * (ABNORMAL) POCT Hgb A1c (11/17/2024 2:29 PM EDT) Pathologist [facility] Hemoglobin A1C 7.5(A) 4.0 - 5.7 % QC Media Lot # [id number] Lot# Expiration Date 41,62 Blood 11/17/2024 2:29 PM EDT Calista Nuñez MD POINT OF CARE TEST EN TER/EDIT ORDERABLES Final Result * (ABNORMAL) POCT Glucose (11/17/2024 2:29 PM EDT) Pathologist [facility] Glucose Blood, POC 229(A) 60 - 200 mg/dL QC Media Lot # [id number] Lot# Expiration Date Blood Capillary blood specimen / Unknown 11/17/2024 2:29 PM EDT Calista Nuñez MD POINT OF CARE TEST EN TER/EDIT ORDERABLES Final Result * BI Mammogram Screening Tomosynthesis Bilateral (10/28/2024 1:45 PM EDT) Anatomical Region Laterality Modality Breast Bilateral Mammography 10/28/2024 1:45 PM EDT Narrative 11/02/2024 8:57 AM EDT [facility] [address] [place] [address] Mammography Report Signed Patient: Carola Green MR#: [id number] : 1955 Acct:[id number] Age/Sex: 69 / F ADM Date: 10/28/24 Loc: HO.MAMMO Attending Dr: Calista Nuñez MD Ordering Physician: Calista Hooper MD Results: 1Negative Date of Service: 10/28/24 Follow Up: 1 Year From [facility] Mammogram Procedure(s): MM tomosynthesis screening BI Accession Number(s): [id number] cc: Calista Hooper MD EXAMINATION: MM SCREENING DIGITAL BREAST TOMOSYNTHESIS, BILATERAL CLINICAL INFORMATION: Screening. Asymptomatic. COMPARISON: Mammography: Comparison is made with available priors TECHNIQUE: Digital breast mammography with tomosynthesis is performed in both the craniocaudal and mediolateral oblique views along with computer-aided detection (CAD). FINDINGS: There are scattered areas of fibroglandular density (ACR BI-RADS breast composition Category b). There are no significant masses, abnormal calcifications, or other abnormalities. MM/MM tomosynthesis screening BI IMPRESSION: No mammographic evidence of malignancy. ASSESSMENT: BI-RADS BI-RADS 1 - Negative RECOMMENDATION: Routine annual mammography screening. 1 year F/U This examination should not preclude the clinical evaluation of a suspicious palpable abnormality. This patient's information was entered into a reminder system with a target due date for their next mammogram. Electronically signed by: Emili Sesay DO 11/02/2024 08:54 AM EDT Dictated By: Emili Sesay DO Signed By: <Electronically signed by Emili Sesay DO in OV> 11/02/24 0854 DD/ 1345 TD/TT: 10/28/24 1400 Marzipan Maker: Procedure Note Donotuseinterpreter, Image - [facility]/02/[facility] [address] [place] [address] Mammography Report Signed Patient: Cain Green#: [id number] : 5Acct:[id number] Age/Sex: 69 / FADM Date: 10/28/24 Loc: HO.MAMMO Attending Dr: Calista Nuñez MD Ordering Physician: Calista Hooper MDResults: 1Negative Date of Service: 10/28/24Follow Up: 1 Year From Orig inal Mammogram Procedure(s): MM tomosynthesis screening BI Accession Number(s): [id number] cc: Calista Hooper MD EXAMINATION: MM SCREENING DIGITAL BREAST TOMOSYNTHESIS, BILATERAL CLINICAL INFORMATION: Screening. Asymptomatic. COMPARISON: Mammography: Comparison is made with available priors TECHNIQUE: Digital breast mammography with tomosynthesis is performed in both the craniocaudal and mediolateral oblique views along with computer-aided detection (CAD). FINDINGS: There are scattered areas of fibroglandular density (ACR BI-RADS breast composition Category b). There are no significant masses, abnormal calcifications, or other abnormalities. MM/MM tomosynthesis screening BI IMPRESSION: No mammographic evidence of malignancy. ASSESSMENT: BI-RADS BI-RADS 1 - Negative RECOMMENDATION: Routine annual mammography screening. 1 year F/U This examination should not preclude the clinical evaluation of a suspicious palpable abnormality. This patient's information was entered into a reminder system with a target due date for their next mammogram. Electronically signed by: Emili Sesay DO 11/02/2024 08:54 AM EDT RP Dictated By: Emili Sesay DO Signed By: <Electronically signed by Emili Sesay DO in OV> 11/02/24 0854 DD/ 1345 TD/TT: 10/28/24 1400 Marzipan Maker: us Calista Nuñez MD IMG BI PROCEDURES Fin al Result * (ABNORMAL) Albumin, Random Urine W/Creatinine (08/12/2024 3:11 PM EDT) Creatinine, Urine 123.15 mg/dL [facility] Microalbumin Urine 137.0 mg/L [facility] Microalbum Creatinine Ratio Ur 111.2(H) <30 ug/mg cr [facility] Comment:Albumin/Creatinine R atio Reference Ranges: Normal: < 30 ug/mg creatinine Microalbuminuria: 30 - 300 ug/mg creatinineClinical Albuminuria: > 300 ug/mg creatinine Urine (Urine, Random) 08/12/2024 3:11 PM EDT 08/12/2024 4:02 PM EDT us Calista Nuñez MD LAB URINE ORDERABLES Final Result [facility] [address] [place] [phone] * (ABNORMAL) Lipid Panel, Standard (08/12/2024 3:11 PM EDT) Triglycerides 146 <150 mg/dL [facility] Comment:Desirable Triglyceri de: less than 150 mg/dLBorderline High Triglyceride 150-199 mg/dLHigh Triglyceride: 200-499 mg/dLVery High Triglyceride: greater than or equal to 5OO mg/dL Cholesterol 219(H) <200 mg/dL [facility] Comment:Desirable Cholestero l: less than 200 mg/dLBorderline High Cholesterol: 200-239 mg/dLHigh Cholesterol: greater than 239 mg/dL LDL Cholesterol Calculated 142(H) <100 mg/dL [facility] Comment:Desirable LDL: less than 100 mg/dLNear Optimal/Above Optimal LDL: 110- 129 mg/dLBorderline High LDL: 130-159 mg/dLHigh LDL: 160-189 mg/dLVery High LDL: greater than or equal to 190 mg/dL HDL Cholesterol 48 >40 mg/dL [facility] Comment:Desirable HDL: great er than 40 mg/dL Note: This HDL assay may give artificially low results in patients with liver disease. Blood Venous blood specimen / Unknown 08/12/2024 3:11 PM EDT 08/12/2024 4:03 PM EDT us Calista Nuñez MD LAB BLOOD ORDERABLES Final Result Performing Organization Address [facility] Co de Phone Number [facility] [address] [place] [address] [phone] * HEPATITIS C AB W/REFL TO HCV [...] a test for HCV RNA (test code 00402) is suggested. For additional information please refer to http://education.[employer]/faq/OAE93f0 (This link is being provided for informational/ educational purposes only.) 06/07/2021 2:30 PM EDT us Inna Whyte NP HISTORICAL/NON ORDERABLE LABS F inal Result Performing Organization Address City/[facility] Co de Phone Number [facility] [address] [place] [phone] from Last 3 Months or Most Recently Relevant to Health Maintenance Insurance MEDICARE Care Teams Credit Counselor Relationship Specialty Start Date End Date Calista Hooper MD [address] [place] [phone] PCP - General Internal Medicine 02/11/23
--- OUTSIDE RECORDS SUMMARY | 2024-11-17 18:06 | XMS_ITS | Encounter Summary ---
Author Organization [employer] Address [address] [place] [address] Care Team Providers Care Ase Master Mechanic Name Role Phone Calista Hooper MD Primary Care Provide r Encounter Details Date Type Department Care Team (Latest Contact Info) Description 11/17/2024 Travel Social History Tobacco Use Types Packs/Day Years [...] AM EDT documented as of this encounter Functional Status * Over the [...] [place] documented as of this encounter Plan of Treatment Upcoming Encounters Date Type Department Care Team (Late st Contact Info) Description 12/08/2024 9:45 AM EDT Office Visit [facility] [address] [place] [address] Quincy Bradshaw [address] [place] [address] documented as of this encounter Visit Diagnoses Not on filedocumented in this encounter Additional Health Concerns Assessment Noted Time PHQ-9 Depression Total Score: 5 11/18/19 25 2:10 PM EDT documented as of this encounter Care Teams Ase Master Mechanic Relationship Specialty Start Date End Date Calista Hooper MD [address] [place] [address] PCP - General Internal Medicine 02/11/23 documented as of this encounter
== END 2024-11-17 14:58 | disposition home or self-care (01) ==
LOC: HO.HHCX 14:57
PROVIDERS: PCP Internal Medicine; Visit Provider Internal Medicine
DX: M54.50 Low back pain, unspecified (principal); G89.29 Other chronic pain; M25.561 Pain in right knee; M25.531 Pain in right wrist
CPT/HCPCS: 72100; 73110; 73564

== ENCOUNTER → 2024-11-17 15:04 | Outpatient (BNV) | payer MEDICARE, MEDICAID, SELFPAY | PROVIDERS: PCP Internal Medicine; Visit Provider Radiology Diagnostic Radiology | DX: M25.461 Effusion, right knee (principal); M17.11 Unilateral primary osteoarthritis, right knee; M51.360 Other intervertebral disc degeneration, lumbar region with discogenic back pain only; M19.031 Primary osteoarthritis, right wrist | CPT/HCPCS: 72100; 73110; 73564 ==

== ENCOUNTER 2024-11-18 12:07 | Outpatient (AMB) | payer MEDICARE, MEDICAID, SELFPAY ==
[2024-11-18 12:20] VITALS: BP 142/68; PULSE 83; O2SAT 95; BMI 27.7
--- NOTE | 2024-11-18 12:20 | HO.NEPHOV_ITS ---
Vital Signs 11/18/24 12:20 Height 4 ft 11 in Weight 137 lb BMI 27.7 BP 142/68 H Blood Pressure Location Lt brachial Position Sitting Pulse 83 Pulse Source Pulse Oximeter Pulse Oximetry (%) 95 Oxygen Delivery Method Room Air Intake Visit Reasons: 1 Month F/U-Conf w/daughter Sales Inspector Required: No Accompanied by: Daughter Allergies ibuprofen (IBUPROFEN) Allergy (Unknown, Verified 11/18/24 12:22) UPSET STOMACH, stomach pain pravastatin Adverse Reaction (Unknown, Verified 11/18/24 12:22) cannot swallow large tabler Medication List - Last Reconciled 11/18/24 by Mc Farrar MD acetaminophen 500 mg PO Q8H PRN albuterol sulfate mg inhalation Q6H PRN albuterol sulfate 90 mcg/actuation 2 puffs inhalation Q4H PRN atorvastatin (Lipitor) 40 mg PO DAILY cetirizine 10 mg PO DAILY PRN dorzolamide-timolol 22.3-6.8 mg/mL 1 drp ophthalmic (eye) glipizide 5 mg PO QAM losartan 100 mg PO DAILY metformin 1,000 mg PO BID omega-3 fatty acids-fish oil 340-1,000 mg 1 cap PO BID trazodone 25 mg PO BEDTIME PRN HPI Comments Details: The patient is a 69-year-old female presenting with microalbuminuria and diabetes mellitus. She is currently taking glipizide and metformin for glycemic control. The patient reports swelling in her legs, which is indicative of peripheral edema. Additionally, she experiences foot pain, although it is unclear if she takes any analgesics for this symptom. She denies smoking and reports drinking a lot of water, which is beneficial for her condition. There is no mention of recent surgeries or hospitalizations, although there is a vague reference to a recent operation. 11/18/24 The patient is a 69-year-old female presenting with hypertension and diabetes mellitus management. Blood pressure is 142/68 mmHg, slightly elevated, with ongoing antihypertensive treatment. Blood pressure readings at primary care were slightly elevated but not concerning. Diabetes mellitus is well-controlled with current regimen. Proteinuria is present, with stable kidney function. Recommendations include reducing salt intake and maintaining hydration. [facility] Medical History (Updated 10/12/24 @ 12:00 by Mc Farrar MD) Systolic murmur Polyarthralgia Unilateral congenital absence of kidney Tremor Kidney disease Hearing loss Headache Glaucoma Essential hypertension Dyslipidemia Diabetes mellitus Depressive disorder Physical Exam Vital Signs: Last Vital Signs Pulse 83 11/18/24 12:20 BP 142/68 H 11/18/24 12:20 Pulse Ox 95 11/18/24 12:20 Oxygen Delivery Method Room Air 11/18/24 12:20 BMI result Body Mass Index 27.7 Const General: comfortable Nutritional Appearance: well nourished Orientation/consciousness: patient oriented x3 HEENT Head: No normal to inspection Mouth: moist mucous membranes Neck Neck: Yes supple and Yes no JVD Resp Auscultation: clear to auscultation bilaterally, no rales and rub present Cardio Jugular venous distension: no JVD Palpation: no palpable S3 and no palpable S4 Heart sounds: no rubs GI Palpation (GI): Soft to palpation and nontender Percussion: No Fluid wave present General: Yes no CVA tenderness Back/Spine/Pelvis Back: no CVA tenderness Skin General skin exam: no rashes or lesions noted Neuro General: patient oriented x3 Extrem General: Yes no pedal edema and No clubbing Results Reviewed Results Reviewed: Oct 2024 Urine Pro: cr 0.38 Nephrology Results: Sodium, (135-145) 145 mmol/L 10/12/24 Potassium, (3.3-5.1) 3.7 mmol/L 10/12/24 Chloride, (96-108) 107 mmol/L 10/12/24 Carbon Dioxide, (22-29) 31 mmol/L H 10/12/24 BUN, (9-16) 10 mg/dL 10/12/24 Creatinine, (0.5-1.4) 0.66 mg/dL 10/12/24 Calcium, (8.4-10.2) 9.0 mg/dL 10/12/24 Urine Protein, (Neg-Trace) 30 (1+) mg/dL H 10/12/24 Urine Creatinine 71.55 mg/dL 10/12/24 Assessment & Plan Assessment & Plan (1) Type 2 diabetes mellitus: Code(s): E11.9 - Type 2 diabetes mellitus without complications Category: Medical (2) Proteinuria: Code(s): R80.9 - Proteinuria, unspecified Category: Medical (3) Hypertension: Code(s): I10 - Essential (primary) hypertension Category: Medical Plan 69-year-old woman with microalbuminuria in the setting of diabetes mellitus. Microalbuminuria most likely due to underlying diabetic kidney disease. Goal is to slow the progression of renal disease Agree with losartan 100 mg a day. Maintain blood pressure less than 130/80 If SBP stays above 240 , would add HCTZ 12.5 mg QD Maintain A1c less than 7%. Continue to avoid nephrotoxic agents. Orders: Orders Basic Metabolic Panel 3 Months I10 - Essential (primary) hypertension UA and rflx microscopic 3 Months I10 - Essential (primary) hypertension Coding Level of Care Code Est Pt Level 4 (93553) Diagnoses Type 2 diabetes mellitus E11.9 Proteinuria R80.9 Hypertension I10
--- OUTSIDE RECORDS SUMMARY | 2024-11-18 16:21 | XMS_ITS | Clinical Summary ---
Author Organization [facility] ity Address [address] [place] [address] Care Team Providers Care Grout Machine Operator Name Role Phone Unavailable Primary Care Provider [...]
== END 2024-11-18 12:32 | disposition home or self-care (01) ==
LOC: HO.HKA 12:08
PROVIDERS: PCP Internal Medicine; Visit Provider Internal Medicine Hypertension Specialist
DX: E11.9 Type 2 diabetes mellitus without complications (principal); R80.9 Proteinuria, unspecified; I10 Essential (primary) hypertension
CPT/HCPCS: 99214

== ENCOUNTER → 2024-11-18 12:07 | Outpatient (BNVA) | payer MEDICARE, MEDICAID, SELFPAY | PROVIDERS: PCP Internal Medicine; Visit Provider Internal Medicine Hypertension Specialist | DX: E11.9 Type 2 diabetes mellitus without complications (principal); I10 Essential (primary) hypertension; R80.9 Proteinuria, unspecified | CPT/HCPCS: 99212 ==

== ENCOUNTER 2025-02-16 08:30 | Outpatient (REF) | payer MEDICARE, MEDICAID, SELFPAY ==
[2025-02-16 09:44] LABS: Appearance Urine Clear; Glucose Urine UA >=1000 mg/dL (Negative); PH 5.5 (5.0-9.0); Specific Gravity - Urine 1.025 (1.005-1.025); UMIC TRIGGER UA YES
[2025-02-16 09:54] LABS: Anion Gap 11 (12-20); Blood Urea Nitrogen 15 mg/dL (9-16); Calcium 8.5 mg/dL (8.4-10.2); Carbon Dioxide 25 mmol/L (22-29); Chloride 112 mmol/L (96-108); Estimated Glomerular Filt Rate > 60; Potassium 4.0 mmol/L (3.3-5.1); Sodium 144 mmol/L (135-145)
== END 2025-02-16 08:31 ==
LOC: HO.LAB 08:30
PROVIDERS: Visit Provider Internal Medicine Hypertension Specialist
DX: I10 Essential (primary) hypertension (principal); E11.9 Type 2 diabetes mellitus without complications; R80.9 Proteinuria, unspecified
CPT/HCPCS: 36415; 80048; 81001

== ENCOUNTER 2025-02-17 11:51 | Outpatient (AMB) | payer MEDICARE, MEDICAID, SELFPAY ==
[2025-02-17 12:03] VITALS: BP 136/70; PULSE 73; O2SAT 96; BMI 27.7
--- NOTE | 2025-02-17 12:03 | HO.NEPHOV ---
Vital Signs 02/17/25 12:03 Height 4 ft 11 in Weight 137 lb BMI 27.7 BP 136/70 Blood Pressure Location Lt brachial Position Sitting Pulse 73 Pulse Source Pulse Oximeter Pulse Oximetry (%) 96 Oxygen Delivery Method Room Air Intake Visit Reasons: 3mon f/u w/labs Keymodule Assembly Supervisor Required: No Keymodule Assembly Supervisor Services: Keymodule Assembly Supervisor Offered & Declined (Son will translate ) Accompanied by: Son Allergies ibuprofen (IBUPROFEN) Allergy (Unknown, Verified 11/18/24 12:22) UPSET STOMACH, stomach pain pravastatin Adverse Reaction (Unknown, Verified 11/18/24 12:22) cannot swallow large tabler Medication List - Last Reconciled 02/17/25 by Mc Farrar MD acetaminophen 500 mg PO Q8H PRN albuterol sulfate mg inhalation Q6H PRN albuterol sulfate 90 mcg/actuation 2 puffs inhalation Q4H PRN atorvastatin (Lipitor) 40 mg PO DAILY cetirizine 10 mg PO DAILY PRN dorzolamide-timolol 22.3-6.8 mg/mL 1 drp ophthalmic (eye) glipizide 5 mg PO QAM losartan 100 mg PO DAILY metformin 1,000 mg PO BID omega-3 fatty acids-fish oil 340-1,000 mg 1 cap PO BID trazodone 25 mg PO BEDTIME PRN HPI Comments Details: History of Present Illness The patient is a 70 year old female presenting for a follow-up visit for hypertension and microalbuminuria. Her hypertension is noted to be well-controlled. Her lab work shows a creatinine of 0.87. She takes losartan, which is noted to be helping her kidneys. The patient reports she drinks a lot of water. Results - Labs: Recent blood tests for kidney function are noted to be good, with a creatinine of 0.87. - Urinalysis: Recent urine test results are good. [facility] Medical History (Updated 10/12/24 @ 12:00 by Mc Farrar MD) Systolic murmur Polyarthralgia Unilateral congenital absence of kidney Tremor Kidney disease Hearing loss Headache Glaucoma Essential hypertension Dyslipidemia Diabetes mellitus Depressive disorder Physical Exam Exam Exam: Physical Exam General: Awake. Comfortable. HENT: Neck supple. Mucosa moist. Pulmonary: Lungs aeration equal. No rales. Cardiology: Heart S1-S2 heard. No gallop. Abdomen: Soft. Non tender. Bowel sounds normal. Neurologic: No involuntary movements. No myoclonus. Extremities: No edema. No rash. Vital Signs: Last Vital Signs Pulse 73 02/17/25 12:03 BP 136/70 02/17/25 12:03 Pulse Ox 96 02/17/25 12:03 Oxygen Delivery Method Room Air 02/17/25 12:03 BMI result Body Mass Index 27.7 Results Reviewed Nephrology Results: Sodium, (135-145) 144 mmol/L 02/16/25 Potassium, (3.3-5.1) 4.0 mmol/L 02/16/25 Chloride, (96-108) 112 mmol/L H 02/16/25 Carbon Dioxide, (22-29) 25 mmol/L 02/16/25 BUN, (9-16) 15 mg/dL 02/16/25 Creatinine, (0.5-1.4) 0.87 mg/dL 02/16/25 Calcium, (8.4-10.2) 8.5 mg/dL 02/16/25 Urine Protein, (Neg-Trace) Negative mg/dL 02/16/25 Urine Creatinine 71.55 mg/dL 10/12/24 Assessment & Plan Assessment & Plan (1) Type 2 diabetes mellitus: Code(s): E11.9 - Type 2 diabetes mellitus without complications Category: Medical (2) Proteinuria: Code(s): R80.9 - Proteinuria, unspecified Category: Medical (3) Hypertension: Code(s): I10 - Essential (primary) hypertension Category: Medical Plan Plan 1. Hypertension - The patient's blood pressure is well controlled and has improved since her last visit. - Continue current medication management with losartan, which also benefits her renal status. - A refill for losartan will be sent to her pharmacy. - Follow-up is scheduled for six months. 2. Microalbuminuria - The patient's kidney function appears stable, with good results on recent blood and urine tests. - Her creatinine is 0.87. - Continue losartan for renal protection. - Advised to continue good hydration. - Recommended to follow up in six months. Patient Instructions - Continue to take your losartan medication as prescribed. A refill has been sent to the [facility]. - Keep drinking plenty of water, as you have been doing. - Please return for a follow-up appointment in six months. Orders: Orders Basic Metabolic Panel 6 Months E11.9 - Type 2 diabetes mellitus without complications, I10 - Essential (primary) hypertension Total Protein Urine Random Today E11.9 - Type 2 diabetes mellitus without complications, I10 - Essential (primary) hypertension UA and rflx microscopic Today E11.9 - Type 2 diabetes mellitus without complications, I10 - Essential (primary) hypertension Creatinine Urine Today E11.9 - Type 2 diabetes mellitus without complications, I10 - Essential (primary) hypertension Medications: New losartan 100 mg PO DAILY 90 tabs 2RF Coding Level of Care Code Est Pt Level 4 (62747) Diagnoses Type 2 diabetes mellitus E11.9 Proteinuria R80.9 Hypertension I10
--- OUTSIDE RECORDS SUMMARY | 2025-02-17 18:18 | XMS_ITS | Clinical Summary ---
Author Organization [facility] Address [address] [place] [id number] Phone Care Team Providers Care Powerhouse Laborer Name Role Phone Unavailable Primary Care Provider [...] Last Done Comments Breast Cancer Screening 1955 Colorectal Cancer Screening: Colonoscopy 1955 DTaP,Tdap,and Td Vaccines (1 - Tdap) 1974 Pneumococcal Vaccine: 50+ Ye ars (1 of 1 - PCV) 2005 Zoster Vaccines (1 of 2) 2005 Depression Screening 03/10/2024 COVID-19 Vaccine (1 - 2024-2 6 season) 2024 Influenza Vaccine (#1) 2024 Falls Risk Assessment 11/29/2024 Hepatitis C Screening 11/29/2024 Medicare Annual Wellness Visit 11/29/2024 Osteoporosis Screening (Bone Density Screening) 11/29/2024 Social Influencers of Health Screening 11/29/2024 RSV Immunization Adult Patie nts (1 - [...] on patient's age to complete this topic Insurance MEDICARE
--- OUTSIDE RECORDS SUMMARY | 2025-02-17 18:18 | XMS_ITS | Clinical Summary ---
Author Organization [employer] Address [address] [facility] [address] [place] [address] Care Team Providers Care Rn Social Services Name Role Phone Calista Hooper MD Primary [...] into both eyes 10 mL 2 Active buPROPion SR (Wellbutrin SR) 150 MG 12 hr tabletIndication s:Depressive disorder Take 1 tablet (150 mg) by mouth in the morning. 30 tablet 2 4 Active cholecalciferol (Vitamin D-3) 50 MCG (2000 UT) tabletIndication s:Type 2 diabetes mellitus with hyperglycemia, without long-term current use of insulin (HCC) Take 2,000 Units by mouth in the morning. 30 tablet 2 4 Active glucose blood (FREESTYLE LITE) test stripIndications :Type 2 diabetes mellitus with hyperglycemia, without long-term current use of insulin (HCC) Use 1 strip twice a day 100 [...] hyperglycemia, without long-term current use of insulin ([facility]) 1 each 2 times daily. 100 each 2 4 Active Blood Glucose Monitoring Suppl (Blood Glucose Monitor System) w/Device kitIndications:T ype 2 diabetes mellitus with hyperglycemia, without long-term current use of insulin ([facility]) 1 each 2 times daily. 1 kit 4 Active Lancets miscIndications: Type 2 diabetes mellitus with hyperglycemia, without long-term current use of insulin ([facility]) 1 each 2 times daily. 100 each 2 4 Active lidocaine (Lidoderm) 5 % patchIndications :Polyarthralgia Apply 1 patch topically in the morning. Remove & discard patch within 12 hours or as directed by MD. 30 patch 2 4 Active Blood Pressure Monitoring (Blood Pressure Cuff) miscIndications: Essential hypertension 1 each in the morning. 1 each 5 Active atorvastatin (Lipitor) 40 MG tabletIndication s:Essential hypertension Take 1 tablet (40 mg) by mouth Once per day. 90 tablet 2 5 Active glipiZIDE (Glucotrol) 5 MG tabletIndication s:Type 2 diabetes mellitus with hyperglycemia, without long-term current use of insulin ([facility]) take 1 tablet (5MG) by oral route every day with breakfast 90 tablet 2 5 Active metFORMIN (Glucophage) 500 MG tabletIndication s:Type 2 diabetes mellitus with hyperglycemia, without long-term current use of insulin ([facility]) 2 tablet by mouth twice daily with meals 180 tablet 2 5 Active empagliflozin (Jardiance) 10 MGIndications:Ty pe 2 diabetes mellitus with hyperglycemia, without long-term current use of insulin ([facility]) Take 1 tablet (10 mg) by mouth Once per day. 30 tablet 11 5 026 Active albuterol (2.5 MG/3ML) 0.083% nebulizer solutionIndicati ons:Asthma, unspecified asthma severity, unspecified whether complicated, unspecified whether persistent Take 3 mL by nebulization every 6 (six) hours. 75 mL 1 5 Active FREESTYLE LITE test stripIndications :Type 2 diabetes mellitus with hyperglycemia, without long-term current use of insulin (HCC) Use to test blood sugar 1 times daily 100 each 12 5 026 Active Lancets miscIndications: Type 2 diabetes mellitus with hyperglycemia, without long-term current use of insulin (HCC) Use to test blood sugar 1 times daily 100 each 5 Active Alcohol Swabs 70 % padsIndications: Type 2 diabetes mellitus with hyperglycemia, without long-term current use of insulin ([facility]) Use to test blood sugar 1 times daily 100 each 5 Active Blood Glucose Monitoring Suppl (FreeStyle [place] Lite) w/Device kitIndications:T ype 2 diabetes mellitus with hyperglycemia, without long-term current use of insulin ([facility]) Use to test blood sugar 1 times daily 1 kit 5 Active acetaminophen (Tylenol) 500 MG tabletIndication s:Polyarthralgia take 1 Tablet by oral route every 8 hours as needed for pain 30 tablet 2 5 Active albuterol (Ventolin HFA) 108 (90 Base) MCG/ACT inhalerIndicatio ns:Asthma, unspecified asthma severity, unspecified whether complicated, unspecified whether persistent Inhale 2 puffs every 4 (four) hours if needed for wheezing or shortness of breath. 18 g 2 5 Active Fluticasone-Salm eterol (Advair Diskus) 500-50 MCG/ACT aerosol powderIndication s:Asthma, unspecified asthma severity, unspecified whether complicated, unspecified whether persistent Inhale 1 puff every 12 (twelve) hours. 1 each 2 5 Active losartan (Cozaar) 100 MG [...] Encounters Date Type Department Care Team Description 2025 Telephone [facility] [address] [place] [phone] Calista Hooper MD YULIA RECALL 12/09/2024 Telephone [facility] [address] [place] [phone] Calista Hooper MD Dec recall 12/08/2024 9:45 AM EDT Office Visit [facility] [address] [place], [place] [phone] Quincy Bradshaw 11/18/2024 Results Follow-Up [facility] [address] [place] [phone] Calista Hooper MD XR Knee 4+ Views Right from Last 3 Months Immunizations Immunization Administration Dates Next Due Influenza injectable quadriv alent IIV4 with preservative 12/05/2015,02/27/2015 Influenza injectable quadrivalent preservative f ree 04/07/2023,03/04/2019 Influenza, IIV3, injectable 01/11/2014, 0 Influenza, Split (incl. purified surface antigen ) 01/01/2013,11/18/2011 Pfizer Covid-19 Vaccine 12+ 07/06/2020, Pneumococcal Conjugate PCV 20 08/12/2024 Pneumococcal Polysaccharide [...] 11/17/2024 2:07 PM EDT Plan of Treatment Health Maintenance Due Date Last Done Comments CT Colonography 1955 Colonoscopy 1955 Colorectal Cancer Screening 1955 FIT DNA/Cologuard 1955 FIT 1955 FOBT 1955 Sigmoidoscopy 1955 Eye Exam 1965 RSV Patients and Patients Aged 60 years or older (1 - Risk 50-74 years 1-dose series) 2005 Dental Prophylaxis 04/09/2009 10/06/2008 Zoster Vaccines (2 of 3) 01/30/2016 12/05/2015 DTaP/Tdap/Td Vaccines (2 - Td or Tdap) [...] Diabetes: Urine Protein Screening 08/12/2025 08/12/2024, 04/07/2023, 06/07/2021, Additional history exists Lipid Panel 08/12/2025 08/12/2024, 06/07/2021 Alcohol/Substance Use Screening 11/17/2025 11/17/2024 Depression Screening 11/17/2025 11/17/2024, 11/18/19 SDOH Screening 11/17/2025 11/17/2024 Tobacco Screening 12/08/2025 12/08/2024 Diabetes: Foot Exam 12/17/2025 12/17/2024 Mammogram 10/28/2026 10/28/2024, 08/09, 08/27/2021 Dental X-Ray: Full Mouth 12/10/2027 12/08/2024, 03/11 Hepatitis C Screening Completed 06/07/2021 Pneumococcal Vaccine: [...] Procedure Name Priority Date/Time Associated Diagnosis Comments AMB REFERRAL TO PODIATRY Routine 12/17/2024 Type 2 diabetes mellitus with hyperglycemia, without long-term current use of insulin (HCC) Callus CASE PRESENTATION, DETAILED AND EXTENSIVE TREATMENT PLANNING Routine 12/08/2024 9:45 AM EDT CONSULTATION - DIAGNOSTIC SERVICE PROVIDED BY DENTIST OR PHYSICIAN OTHER THAN REQUESTING DENTIST OR PHYSICIAN Routine 12/08/2024 9:45 AM EDT PANORAMIC RADIOGRAPHIC IMAGE Routine 12/08/2024 9:45 AM EDT POCT GLYCATED HEMOGLOBIN, TOTAL Routine 11/17/2024 2:29 PM EDT Type 2 diabetes mellitus with hyperglycemia, without long-term current use of insulin (CMS/HCC) BI MAMMOGRAM SCREENING TOMOSYNTHESIS BILATERAL Routine 10/28/2024 1:45 PM EDT Encounter for screening mammogram for malignant neoplasm of breast ALBUMIN, RANDOM URINE W/CREATININE Routine 08/12/2024 3:11 [...] RADIOGRAPHIC IMAGE Routine 06/10/2024 1:00 PM EDT JORDY HISTORICAL HEPATITIS C AB W/REFL TO HCV RNA, QN, PCR Routine 06/07/2021 2:30 PM EDT PROPHYLAXIS - ADULT Routine 10/06/2008 1 2:00 AM EDT from Last 3 Months or Most Recently Relevant to Health Maintenance Results * Referral to Podiatry (12/17/2024) us Calista Nuñez MD OUTPATIENT REFERRAL O RDERABLES Final Result * (ABNORMAL) POCT Hgb A1c (11/17/2024 2:29 PM EDT) Hemoglobin A1C 7.5(A) 4.0 - 5.7 % QC Media Lot # [id number] Lot# Expiration Date [id number] Blood 11/17/2024 2:29 PM EDT us Calista Nuñez MD POINT OF CARE TEST EN TER/EDIT ORDERABLES Final Result * BI Mammogram Screening Tomosynthesis Bilateral (10/28/2024 1:45 PM EDT) Anatomical Region Laterality Modality Breast Bilateral Mammography 10/28/2024 1:45 PM EDT Narrative 11/02/2024 8:57 AM EDT [place] [facility] [address] [place] [address] Mammography Report Signed Patient: Carola Green MR#: [id number] : 1955 Acct:[id number] Age/Sex: 69 / F ADM Date: 10/28/24 Loc: HO.MAMMO Attending Dr: Calista Nuñez MD Ordering Physician: Calista Hooper MD Results: 1Negative Date of Service: 10/28/24 Follow Up: 1 Year From Orig inal Mammogram Procedure(s): MM tomosynthesis screening BI Accession Number(s): [id number] cc: Calista Hooper MD EXAMINATION: MM SCREENING [...] 11/02/24 0854 DD/ 1345 TD/TT: 10/28/24 1400 Rental Car Deliverer: Procedure Note Donotuseinterpreter, Image - [facility]/02/[facility] [address] [place], [place] [address] Mammography Report Signed Patient: Cain Green#: [id number] : 5Acct:[id number] Age/Sex: 69 / FADM Date: 10/28/24 Loc: HO.MAMMO Attending Dr: Calista Nuñez MD Ordering Physician: Calista Hooper MDResults: 1Negative Date of Service: 10/28/24Follow Up: 1 Year From Orig inal Mammogram Procedure(s): MM tomosynthesis screening BI Accession Number(s): [id number] cc: Calista Hooper MD EXAMINATION: MM SCREENING [...] 11/02/24 0854 DD/ 1345 TD/TT: 10/28/24 1400 Rental Car Deliverer: us Calista Nuñez MD IMG BI PROCEDURES Fin al Result * (ABNORMAL) Albumin, Random Urine W/Creatinine (08/12/2024 3:11 PM EDT) Creatinine, Urine 123.15 mg/dL [facility] Microalbumin Urine 137.0 mg/L H [facility] Microalbum Creatinine Ratio Ur 111.2(H) <30 ug/mg cr [facility] Comment:Albumin/Creatinine R atio Reference Ranges: Normal: < 30 ug/mg creatinine Microalbuminuria: 30 - 300 ug/mg creatinineClinical Albuminuria: > 300 ug/mg creatinine Urine (Urine, Random) 08/12/2024 3:11 PM EDT 08/12/2024 4:02 PM EDT Calista Nuñez MD LAB URINE ORDERABLES Final Result [facility] [address] [place] [phone] * (ABNORMAL) Lipid Panel, Standard (08/12/2024 3:11 PM EDT) Triglycerides 146 <150 mg/dL [facility] Comment:Desirable Triglyceri de: less than 150 mg/dLBorderline High Triglyceride 150-199 mg/dLHigh Triglyceride: 200-499 mg/dLVery High Triglyceride: greater than or equal to 5OO mg/dL Cholesterol 219(H) <200 mg/dL [facility] Comment:Desirable Cholestero l: less than 200 mg/dLBorderline High Cholesterol: 200-239 mg/dLHigh Cholesterol: greater than 239 mg/dL LDL Cholesterol Calculated 142(H) <100 mg/dL [facility] Comment:Desirable LDL: less than 100 mg/dLNear Optimal/Above Optimal LDL: 110- 129 mg/dLBorderline High LDL: 130-159 mg/dLHigh LDL: 160-189 mg/dLVery High LDL: greater than or equal to 190 mg/dL HDL Cholesterol 48 >40 mg/dL [facility] Comment:Desirable HDL: great er than 40 mg/dL Note: This HDL assay may give artificially low results in patients with liver disease. Blood Venous blood specimen / Unknown 08/12/2024 3:11 PM EDT 08/12/2024 4:03 PM EDT us Calista Nuñez MD LAB BLOOD ORDERABLES Final Result Performing Organization Address [facility]/ZIP Co de Phone Number [facility] [address] [place] [phone] * HEPATITIS C AB W/REFL TO HCV RNA, QN, PCR (06/07/2021 2:30 PM EDT) HEPATITIS C ANTIBODY NON-REACT MARCIE NON-REACT MARCIE [facility] INDEX 0.01 <1.00 [facility] Comment: HCV antibody was non-reactive. There is no laboratory evidence of HCV infection. In most cases, no further action is required. However, if recent HCV exposure is suspected, a test for HCV RNA (test code 12794) is suggested. For additional information please refer to http://education.Nurigene/faq/PLI70j4 (This link is being provided for informational/ educational purposes only.) 06/07/2021 2:30 PM EDT us Inna Whyte NP HISTORICAL/NON ORDERABLE LABS F inal Result Performing Organization Address City/[facility] Co de Phone Number [facility] [address] [place] [address], from Last 3 Months or Most Recently Relevant to Health Maintenance Insurance [facility] STANDARD MEDICARE [address] DENTAL-[facility] MEDICAID STAND ADULT * Guarantor: Carola Green I Account Type Relation to Patient Date of Phone Billing Address Personal/Family Self [address] Care Teams Rn Social Services Relationship Specialty Start Date End Date Calista Hooper MD [address] [place] [phone] PCP - General Internal Medicine 02/11/23
== END 2025-02-17 12:17 | disposition home or self-care (01) ==
LOC: HO.HKA 11:51
PROVIDERS: PCP Internal Medicine; Visit Provider Internal Medicine Hypertension Specialist
DX: E11.9 Type 2 diabetes mellitus without complications (principal); R80.9 Proteinuria, unspecified; I10 Essential (primary) hypertension
CPT/HCPCS: 99214

== ENCOUNTER → 2025-02-17 11:51 | Outpatient (BNVA) | payer MEDICARE, MEDICAID, SELFPAY | PROVIDERS: PCP Internal Medicine; Visit Provider Internal Medicine Hypertension Specialist | DX: I10 Essential (primary) hypertension (principal); E11.9 Type 2 diabetes mellitus without complications; R80.9 Proteinuria, unspecified | CPT/HCPCS: 99212 ==

== ENCOUNTER 2025-02-17 13:51 | Outpatient (REF) | payer MEDICARE, MEDICAID, SELFPAY | END 2025-02-17 13:52 | disposition home or self-care (01) | LOC: HO.HAP 13:51 | PROVIDERS: Visit Provider Internal Medicine | DX: Z46.1 Encounter for fitting and adjustment of hearing aid (principal); H90.3 Sensorineural hearing loss, bilateral | CPT/HCPCS: V5266 ==